=== PATIENT | female | born 1995 | race Two or more races ===

== ENCOUNTER 2024-04-07 11:07 | Inpatient (IN) | payer MEDICAID, OTHER ==
[~2024-04-07] VITALS: Ht 165.1 cm; Wt 90.3 kg
--- NOTE | 2024-04-07 11:12 | ED.PDOC ---
HPI (NEURO) HPI Comments 29 year old female [place] presents to the ED with chief complaint of seizure. 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 EMS relays patient was witnessed to be having a 3 minute seizure by staff. Patient states she had urinary incontinence along with currently experiencing tongue pain, dizziness, nausea, and weakness. EMS notes that they provided the patient 4mg of Zofran. Patient reports that she currently takes lamotrigine daily and her last seizure was 2 weeks ago. Patient denies any headache, chest pain, SOB, vomiting, diarrhea, abdominal pain, oral trauma, or fever. 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, Medications, Allergies Information Source: Patient, Emergency Med Personnel Mode of Arrival: EMS Severity: Moderate Headache Severity: None Timing: Hours Duration: Minutes Prehospital treatment: None Seizure Quality: Tonic-clonic, Single Episodes Seizure Location: Generalized Onset: At rest Circumstances: Spontaneous Symptoms: Numbness, Other (Tingling) Before: Aura During: LOC After: Normal Mentation History of: Seizure Disorder Modifying factors: Nothing Associated Signs and Symptoms: Nausea Past Medical History PAST MEDICAL HISTORY: Seizures, Thyroid Surgical History: Denies all surgeries 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 History: Other (PCOS) Family History Family History: Reviewed,noncontributory to illness Social History Smoker: Non-Smoker Alcohol: Denies ETOH Use Drugs: Denies Drug Use Lives In: Home Constitutional: reports: weakness; denies: chills, diaphoresis, fatigue, fever, malaise, sweats, others EENTM: reports: others (Tongue pain); denies: blurred vision, double vision, ear bleeding, ear discharge, ear drainage, ear pain, ear ringing, eye pain, eye redness, hearing loss, mouth pain, mouth swelling, nasal discharge, nose bleeding, nose congestion, nose pain, photophobia, tearing, throat pain, throat swelling, voice changes Respiratory: denies: cough, hemoptysis, orthopnea, SOB at rest, shortness of breath, SOB with excertion, stridor, wheezing, others Cardiovascular: denies: chest pain, dizzy spells, diaphoresis, Dyspnea on exertion, edema, irregular heart beat, left arm pain, lightheadedness, palpitations, PND, syncope, others Gastrointestinal: reports: nausea; denies: abdomen distended, abdominal pain, blood streaked bowels, constipated, diarrhea, dysphagia, difficulty swallowing, hematemesis, melena, poor appetite, poor fluid intake, rectal bleeding, rectal pain, vomiting, others Genitourinary: denies: abnormal vagina bleeding, burning, dyspareunia, dysuria, flank pain, frequency, hematuria, incontinence, pain, , vagina discharge, urgency, others Neurological: reports: dizziness, numbness, seizure, tingling; denies: fainting, headache, left sided numbness, left sided weakness, paresthesia, pre- existing deficit, right sided numbness, right sided weakness, speech problems, tremors, weakness, others Musculoskeletal: denies: back pain, gout, joint pain, joint swelling, muscle pain, muscle stiffness, neck pain, others Integumetry: denies: bruises, change in color, change in hair/nails, dryness, laceration, lesions, lumps, rash, wounds, others Allergic/Immunocompromised: denies: Difficulty Healing, Frequent Infections, Hives, Itching, others Hematologic/Lymphatic: denies: anemia, blood clots, easy bleeding, easy bruising, swollen glands, others Endocrine: denies: excessive hunger, excessive sweating, excessive thirst, excessive urination, flushing, intolerance to cold, intolerance to heat, unexplained weight gain, unexplained weight loss, others Psychiatric: denies: anxiety, bipolar disorder, depression, hopeless, panic disorder, schizophrenia, sleepless, suicidal, others All Other Systems: Reviewed and Negative Physical Exam General Appearance: Moderate Distress, Normal HEENT: Normal ENT Inspection, PERRL/EOMI Neck: Full Range of Motion, Non-Tender, Normal, Normal Inspection Respiratory: Chest Non-Tender, Lungs Clear, No Accessory Muscle Use, No Respiratory Distress, Normal Breath Sounds Cardiovascular: No Edema, No JVD, No Murmur, No Gallop, Normal Peripheral Pulses, Regular Rate/Rhythm Breast Exam: Deferred Gastrointestinal: No Organomegaly, Non Tender, No Pulsatile Mass, Normal Bowel Sounds, Soft Genitalia: Deferred Pelvic: Deferred Rectal: Deferred Extremities: No calf tenderness, Normal capillary refill, Normal inspection, Normal range of motion, Non-tender, No pedal edema Musculoskeletal : Apperance: Normal Neurologic: Alert, personnel technician II-XII nml as Tested, No Motor Deficits, Normal Affect, Normal Mood, No Sensory Deficits Cerebellar Function: NOT DONE Reflexes: NOT DONE Skin: Dry, Normal Color, Warm Peripheral Pulses: 3+ Radial (R), 3+ Radial (L) Lymphatic: No Adenopathy Was a procedure done? Was a procedure done?: No Differential Diagnosis (SZ) Seizure: Psychogenic Seizure, Encephalopathy, Epilepsy-Break Through, Epilepsy- Status X-Ray, Labs, Meds, VS Vital Signs Date Time Temp Pulse Resp B/P (MAP) Pulse Ox O2 Delivery O2 Flow Rate FiO2 04/07/24 12:42 16 Room Air* 0 21 04/07/24 11:12 99.1 77 17 139/99 (112) 99 Lab Test 04/07/24 11:15 Range/Units White Blood Count 10.3 4.4-10.8 10^3/uL Red Blood Count 4.49 4.0-5.20 10^6/uL Hemoglobin 12.0 L 12.2-16.2 g/dL Hematocrit 36.4 36.0-46.0 % Mean Corpuscular Volume 80.9 80.0-100.0 fL Mean Corpuscular Hemoglobin 26.8 L 28.0-32.0 pg Mean Corpuscular Hemoglobin Concent 33.1 32.0-36.0 g/dL Red Cell Distribution Width 14.7 H 11.8-14.3 % Platelet Count 409 140-450 10^3/uL Mean Platelet Volume 6.9 6.9-10.8 fL Neutrophils (%) (Auto) 80.5 H 37.0-80.0 % Lymphocytes (%) (Auto) 13.0 10.0-50.0 % Monocytes (%) (Auto) 5.7 0.0-12.0 % Eosinophils (%) (Auto) 0.2 0.0-7.0 % Basophils (%) (Auto) 0.6 0.0-2.0 % Neutrophils # (Auto) 8.3 1.6-8.6 10 ^3/uL Lymphocytes # (Auto) 1.3 0.4-5.4 10 ^3/uL Monocytes # (Auto) 0.6 0-1.3 10 ^3/uL Eosinophils # (Auto) 0 0-0.8 10 ^3/uL Basophils # (Auto) 0.1 0-0.2 10 ^3/uL Nucleated Red Blood Cells 0.1 % Sodium Level 138 136-145 mmol/L Potassium Level 4.1 3.5-5.1 mmol/L Chloride Level 106 98-107 mmol/L Carbon Dioxide Level 24 20-31 mmol/L Anion Gap 8 5-15 Blood Urea Nitrogen 7 L 9-23 mg/dL Creatinine 0.80 0.550-1.02 mg/dL Glomerular Filtration Rate Calc 104 >90 mL/min BUN/Creatinine Ratio 8.8 L 10.0-20.0 Serum Glucose 89 74-106 mg/dL Calcium Level 9.9 8.7-10.4 mg/dL Current Medications Medications (Trade) Dose Ordered Sig/Emily Route Start Time Stop Time Status Last Admin Sodium Chloride 1,000 ml @ 1,000 mls/hr Q1H ONCE IV 04/07/24 11:15 04/07/24 12:14 DC 04/07/24 11:34 Ondansetron HCl (Zofran) 4 mg ONCE ONCE IV 04/07/24 11:30 04/07/24 11:31 DC 04/07/24 11:39 Levetiracetam 100 ml @ 400 mls/hr ONCE ONCE IV 04/07/24 12:00 04/07/24 13:02 DC 04/07/24 13:16 Lorazepam (Ativan Inj) 1 mg ONCE ONCE IM 04/07/24 13:30 04/07/24 13:31 DC 04/07/24 13:12 Patient alert. History of seizure. Vitals stable. Answering all questions. No oral injury. No sign of any injury. Moving all extremities. Neurology consultation. MRI. Explained to the patient. Continue cardiac monitoring. Time of 1ST Reevaluation: 12:09 Reevaluation 1ST: Unchanged Patient Education/Counseling: Diagnosis, Treatment Family Education/Counseling: No Family Present Additional Information I reviewed the following notes from patient's past medical encounters: None The following tests were ordered, and results were reviewed by me: CT Head, CBC, BMP, UA Additional Information was gathered from interviewing the following independent historians: EMS I reviewed and agreed with the following test results read by other providers: CT Head I discussed treatment and results with medical personnel. Departure 1 Departure Time of Disposition: 11:31 Impression: Primary Impression: Seizure disorder Disposition: ADMITTED INPATIENT Admit to: Med Surg Condition: Guarded Critical Care Note Critical Care Time?: No Stability Stability form required: No Heart Score Heart Score: Heart Score Response (Comments) Value History N/A 0 EKG N/A 0 Age N/A 0 Risk Factors N/A 0 Troponin N/A 0 Total 0 I personally scribed for RODERICK HARRINGTON MD ([email or web address]) on 04/07/24 at 11:12. Electronically submitted by Mau White ([email or web address]). RODERICK HARRINGTON MD Apr 07, 2024 11:12
[2024-04-07] MEDS: SODIUM CHLORIDE 0.9% 1,000 ML IV ONE (11:34)
[2024-04-07] MEDS: ONDANSETRON HCL 4 MG/2 ML VIAL IV ONE (11:39)
[2024-04-07 11:50] LABS: Basophils # (auto) 0.1 10 ^3/uL (0-0.2); Basophils % (auto) 0.6 % (0.0-2.0); Eosinophils # (auto) 0 10 ^3/uL (0-0.8); Eosinophils % (auto) 0.2 % (0.0-7.0); Hematocrit 36.4 % (36.0-46.0); Lymphocytes # (auto) 1.3 10 ^3/uL (0.4-5.4); Mean Corpuscular Hemoglobin 26.8 pg (28.0-32.0); Mean Corpuscular Hgb Conc. 33.1 g/dL (32.0-36.0); Mean Corpuscular Volume 80.9 fL (80.0-100.0); Monocytes # (auto) 0.6 10 ^3/uL (0-1.3); Monocytes % (auto) 5.7 % (0.0-12.0); Neutrophils # (auto) 8.3 10 ^3/uL (1.6-8.6); Neutrophils % (auto) 80.5 % (37.0-80.0); Nucleated Red Blood Cells % 0.1 %; Platelet Count (auto) 409 10^3/uL (140-450); Red Blood Cells 4.49 10^6/uL (4.0-5.20); Red Cell Distribution Width 14.7 % (11.8-14.3); White Blood Cell 10.3 10^3/uL (4.4-10.8)
[2024-04-07 11:59] LABS: Anion Gap 8 (5-15); Calcium 9.9 mg/dL (8.7-10.4); Carbon Dioxide 24 mmol/L (20-31); Chloride 106 mmol/L (98-107); Potassium 4.1 mmol/L (3.5-5.1); Sodium 138 mmol/L (136-145)
[2024-04-07 12:05] LABS: BUN/Creatinine Ratio 8.8 (10.0-20.0); Glucose 89 mg/dL (74-106)
[2024-04-07 12:09] LABS: Blood Urea Nitrogen 7 mg/dL (9-23)
[2024-04-07 12:42] VITALS: RESP 16
[2024-04-07] MEDS ORDERED: LORazepam 2MG/ML-1ML VIAL ONE (13:04)
[2024-04-07] MEDS: LORazepam 2MG/ML-1ML VIAL IM ONE (13:12)
[2024-04-07] MEDS: levETIRAcetam 500 mg/100ml 100 ML IV ONE (13:16)
--- NOTE | 2024-04-07 15:58 | DVHHP2 ---
History of Present Illness Reason for Visit: Seizures History of Present Illness Valarie Elizabeth is a 29-year-old female with past medical history of thyroid and seizures who presents to the ED with seizure and urinary incontinence. 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 She states that school personnel called EMS. She is unsure if she fell and hit her head. Patient reports that she takes phenobarbital with control and not Keppra because there is a reaction with Keppra on her control. She states however she did not take her control pills today. Patient denies chest pain, shortness of breath, abdominal pain, vomiting, diarrhea, fevers, chills, recent sick contacts, recent illnesses, and ingestion of spoiled food. Patient reports that she is dehydrated. [employer]OC[employer]ATE [employer]: Seizure Endocrine: Hypothyroidism Past Surgical History: None Family History: None Smoke: No ALCOHOL: none Drugs: None Lives: Roommate Domestic Violence: Neg Review of Systems Constitutional: Yes: Weakness, Other (Dizziness); No: Fever, Chills, Sweats, Malaise Eyes: No: Pain, Vision change, Conjunctivae inflammation, Eyelid inflammation, Other, Redness ENT: No: Ear pain, Ear discharge, Nose pain, Nose discharge, Nose congestion, Mouth pain, Mouth swelling, Throat pain, Throat swelling, Other Respiratory: No: Cough, Dry, Shortness of breath, SOB with excertion, Wheezing, Hemoptysis, Pleuritic Pain, Sputum, Wheezing, Other Cardiovascular: No: Chest Pain, Palpitations, Orthopnea, Paroxysmal Noc. Dyspnea, Edema, Lt Headedness, Other Gastrointestinal: Nausea; No: Vomiting, Abdominal Pain, Diarrhea, Constipation, Melena, Hematochezia, Other Genitourinary: No Dysuria, No Frequency; Incontinence; No Hematuria, No Retention, No Other Musculoskeletal: other (Numbness and tingling of fingers) Skin: No: Rash, Lesions, Jaundice, Bruising, Other Neurological: Change in speech (Slow response), Seizures; No: Weakness, Numbness, Incoordination, Confusion, Other Allergies: Coded Allergies: Phenobarbital (Verified Allergy, Unknown, 04/07/24) Exam Vital Signs Vital Signs Date Time Temp Pulse Resp B/P (MAP) Pulse Ox O2 Delivery O2 Flow Rate FiO2 04/07/24 12:42 16 Room Air* 0 21 04/07/24 11:12 99.1 77 139/99 (112) 99 General Appearance: Alert, Oriented X3, Cooperative, No acute distress HEENT: Atraumatic, PERRLA, EOMI, Mucous membr. moist/pink Respiratory: Clear to auscultation, Normal air movement Cardiovascular: Regular rate, Normal S1, Normal S2, No murmurs Abdominal: Normal bowel sounds, Soft, No tenderness, No hepatospenomegaly, No masses Extremities: No clubbing, No cyanosis, No edema, Normal pulses, No tenderness/swelling Skin: No rashes, No breakdown, No significant lesion Neuro: Sensation intact Psych/Mental Status: Mental status NL, Mood NL Labs/Xrays Labs Test 04/07/24 11:15 Range/Units White Blood Count 10.3 4.4-10.8 10^3/uL Red Blood Count 4.49 4.0-5.20 10^6/uL Hemoglobin 12.0 L 12.2-16.2 g/dL Hematocrit 36.4 36.0-46.0 % Mean Corpuscular Volume 80.9 80.0-100.0 fL Mean Corpuscular Hemoglobin 26.8 L 28.0-32.0 pg Mean Corpuscular Hemoglobin Concent 33.1 32.0-36.0 g/dL Red Cell Distribution Width 14.7 H 11.8-14.3 % Platelet Count 409 140-450 10^3/uL Mean Platelet Volume 6.9 6.9-10.8 fL Neutrophils (%) (Auto) 80.5 H 37.0-80.0 % Lymphocytes (%) (Auto) 13.0 10.0-50.0 % Monocytes (%) (Auto) 5.7 0.0-12.0 % Eosinophils (%) (Auto) 0.2 0.0-7.0 % Basophils (%) (Auto) 0.6 0.0-2.0 % Neutrophils # (Auto) 8.3 1.6-8.6 10 ^3/uL Lymphocytes # (Auto) 1.3 0.4-5.4 10 ^3/uL Monocytes # (Auto) 0.6 0-1.3 10 ^3/uL Eosinophils # (Auto) 0 0-0.8 10 ^3/uL Basophils # (Auto) 0.1 0-0.2 10 ^3/uL Nucleated Red Blood Cells 0.1 % Sodium Level 138 136-145 mmol/L Potassium Level 4.1 3.5-5.1 mmol/L Chloride Level 106 98-107 mmol/L Carbon Dioxide Level 24 20-31 mmol/L Anion Gap 8 5-15 Blood Urea Nitrogen 7 L 9-23 mg/dL Creatinine 0.80 0.550-1.02 mg/dL Glomerular Filtration Rate Calc 104 >90 mL/min BUN/Creatinine Ratio 8.8 L 10.0-20.0 Serum Glucose 89 74-106 mg/dL Calcium Level 9.9 8.7-10.4 mg/dL CT HEAD WITHOUT CONTRAST INDICATION: seizures EXAM DATE: 04/07/2024 03:51 PM COMPARISON: None RADIATION DOSE: CTDIvol: 59 mGy, DLP: 1164 mGy*cm PROCEDURE: CT scans of the head were obtained from the vertex to the skull base. Sagittal and coronal reconstructions were provided. All CT scans at this medical facility are performed using dose modulation techniques as appropriate to a performed exam including the following: Automated exposure control was utilized; adjustment of the MA and/or KV according to patient size; and use of iterative reconstruction technique. FINDINGS: The brainshows normal morphology and posey-white matter differentiation, without intracranial hemorrhage, extra-axial fluid collection, mass effect or acute large vessel infarct. The ventricles are normal in size. The basal cisterns are patent. The skull and visible facial bones are intact. The paranasal sinuses, mastoid air cells and middle ear cavities are well-aerate d. The soft tissues of the scalp are unremarkable. IMPRESSION: No acute intracranial abnormality. Assessment/Plan Assessment/Plan Assessment/Plan: Seizures Antiemetics Ativan given in ED IV Keppra Normal saline 1 L given ED UA CT head Seizure precautions A.m. labs Labs UDS History of Hypothyroidism Follow up with PCP outpatient FEN/PPX Diet IV fluids PUD ppx - not indicated no history of GERD or GI bleed DVT ppx -not indicated patient ambulating Discussed plan of care with patient, patient's spouse, and nurse Admit to tele Home medications reconciled Plan discussed with: Patient My Orders Orders - BING ZULUAGA Procedure Category Date Status Time * Neurology Consult CONS 04/07/24 Transmitted 15:37 Levetiracetam Ivpb PHA 04/07/24 Transmitted Keppra 22:[address] 04/07/24 Transmitted 15:37 Seizure Precautions ED NURSING 04/07/24 Transmitted Admit ADMIT 04/07/24 Transmitted 15:37 Allergies CODY 04/07/24 Transmitted 15:37 Code Status CODE 04/07/24 Transmitted 15:37 0.9% Ns 1000 Ml PHA 04/07/24 Transmitted 15:45 Ondansetron Hcl PHA 04/07/24 Verified (Zofran) 15:45 Complete Blood Count LAB 04/08/24 Verified 04:00 Comprehensive LAB 04/08/24 Verified Metabolic Panel 04:00 Cardiac DIET 04/07/24 Verified Diet-2gna,Lofat,Lochol Dinner Acetaminophen Tablet PHA 04/07/24 Verified (Tylenol Tablet) 15:45 Date of Service: Apr 07, 2024 Billing Provider: BING ZULUAGA Common Visit Codes: [id number] INP/OBS CARE (HIGH) BING ZULUAGA Apr 07, 2024 15:58
--- NOTE | 2024-04-07 16:08 | DVH ---
CT HEAD WITHOUT CONTRAST INDICATION: seizures EXAM DATE: 04/07/2024 03:51 PM COMPARISON: None RADIATION DOSE: CTDIvol: 59 mGy, DLP: 1164 mGy*cm PROCEDURE: CT scans of the head were obtained from the vertex to the skull base. Sagittal and coronal reconstructions were provided. All CT scans at this medical facility are performed using dose modulation techniques as appropriate t o a performed exam including the following: Automated exposure control was utilized; adjustment of th e MA and/or KV according to patient size; and use of iterative reconstruction technique. FINDINGS: The brainshows normal morphology and posey-white matter differentiation, without intracran ial hemorrhage, extra-axial fluid collection, mass effect or acute large vessel infarct. The ventricl es are normal in size. The basal cisterns are patent. The skull and visible facial bones are intact. The paranasal sinuses, mastoid air cells and middle ear cavities are well-aerated. The soft tissues o f the scalp are unremarkable. IMPRESSION: No acute intracranial abnormality.
[2024-04-07] MEDS: SODIUM CHLORIDE 0.9% 1,000 ML IV SCH (17:25)
[2024-04-07 20:42] VITALS: PULSE 90; RESP 16; O2SAT 98
[2024-04-07 20:50] LABS: Urine Bacteria FEW /hpf (None Seen); Urine Blood Negative /uL (Negative); Urine Clarity Clear (Clear); Urine Color Light-Yellow (Yellow); Urine Protein, UAD Negative (Negative); Urine Specific Gravity 1.013 (1.001-1.035); Urine Squamous Epithelial Cell FEW /hpf (<5); Urine Urobilinogen Normal (Negative); Urine WBC < 1 /HPF (0-5)
[2024-04-07 21:01] LABS: Cannabinoid Screen, Urine Neg (NEGATIVE)
[2024-04-07 21:07] LABS: Amphetamine Screen, Urine Neg (NEGATIVE); Barbiturate Scree,Urine Neg (NEGATIVE); Benzodiazephine Screen, Urine Neg (NEGATIVE); Cocaine Screen, Urine Neg (NEGATIVE); Opiate Scree,Urine Neg (NEGATIVE); Phencyclidine Screen, Urine Neg (NEGATIVE)
[2024-04-07] MEDS: ACETAMINOPHEN 325 MG TAB PO PRN (21:16)
[2024-04-07] MEDS: levETIRAcetam 500 mg/100ml 100 ML IV SCH (21:17)
[2024-04-08 07:44] LABS: Eosinophils # (auto) 0 10 ^3/uL (0-0.8); Eosinophils % (auto) 0.3 % (0.0-7.0); Hemoglobin 11.6 g/dL (12.2-16.2); Monocytes # (auto) 0.6 10 ^3/uL (0-1.3)
[2024-04-08 07:48] LABS: Basophils # (auto) 0 10 ^3/uL (0-0.2); Basophils % (auto) 0.5 % (0.0-2.0); Hematocrit 35.3 % (36.0-46.0); Lymphocytes # (auto) 1.8 10 ^3/uL (0.4-5.4); Lymphocytes % (auto) 19.3 % (10.0-50.0); Mean Corpuscular Hemoglobin 26.7 pg (28.0-32.0); Mean Corpuscular Hgb Conc. 32.9 g/dL (32.0-36.0); Mean Corpuscular Volume 81.2 fL (80.0-100.0); Monocytes % (auto) 6.6 % (0.0-12.0); Neutrophils # (auto) 6.8 10 ^3/uL (1.6-8.6); Neutrophils % (auto) 73.3 % (37.0-80.0); Platelet Count (auto) 398 10^3/uL (140-450); Red Blood Cells 4.34 10^6/uL (4.0-5.20); Red Cell Distribution Width 15.1 % (11.8-14.3); White Blood Cell 9.3 10^3/uL (4.4-10.8)
[2024-04-08 08:05] LABS: Alanine Aminotransferase 14 U/L (7-40); Albumin 4.7 g/dL (3.2-4.8); Alkaline Phosphatase 63 U/L (46-116); Anion Gap 7 (5-15); Aspartate Aminotransferase 14 U/L (13-40); BUN/Creatinine Ratio 8.4 (10.0-20.0); Bilirubin, Total 0.4 mg/dL (0.2-1.0); Calcium 9.4 mg/dL (8.7-10.4); Carbon Dioxide 26 mmol/L (20-31); Chloride 106 mmol/L (98-107); Glucose 87 mg/dL (74-106); Potassium 4.2 mmol/L (3.5-5.1); Sodium 139 mmol/L (136-145); Total Protein 7.4 g/dL (5.7-8.2)
[2024-04-08 08:08] LABS: Blood Urea Nitrogen 7 mg/dL (9-23)
[2024-04-08 08:50] VITALS: PULSE 73; RESP 17; O2SAT 97
[2024-04-08] MEDS: ONDANSETRON HCL 4 MG/2 ML VIAL IV PRN (09:04)
--- NOTE | 2024-04-08 09:37 | DVHINCON2 ---
Date of service: Apr 08, [address] Pagan Reason for Consultation Seizure History of Present Illness Ms. Elizabeth is a 29 years old left-handed female with a history of Jose Maria's disease, hypothyroidism, polycystic ovarian syndrome, seizure disorder, the patient was brought to the [facility] on 04/07/24 for seizure activity, at that time, she is alert and fully oriented, she was her mother prov ided the following history On 04/07/2024, at work, she has seizure with complete amnesia, she was said the he stood up, reasonable arm, and she had biting to her tongue in the urinary incontinence, she was no convulsion According to her mother, the patient was has had seizure disorder since age of 89 years old, during the seizure, she is walking, with arm raising the air, she has had biting and urinary incontinence during the seizure. She was febrile seizure once in the age of eight months, she was treated with a seizure medication for a few years She has seen many doctors, she sees a local neurologist now, she has vagal nerve stimulator, she is on lamotrigine 400 mg b.i.d but her seizure is not under good control recently, she has seizure about once weekly She only tried Keppra previously after the age of 10 Urinalysis, 04/07/2024: Unremarkable UDS, 04/07/2024: Negative WBC/HB/PLT/MCV, 04/08/24: 9.3/11.6/398/81.2 CMP, 04/08/2024: Unremarkable CT head, 04/07/2024: No acute intracranial abnormality. Past Medical History Jose Maria disease, hypothyroidism, polycystic ovarian syndrome. This reports that the patient does not ovulate, and she can not have children Past Surgical History Infection to the hand, vasovagal nerve stimulator Family History Diabetes, cancer Social History She is not a smoker, and she has no history of alcohol or substance abuse Allergies: Coded Allergies: Phenobarbital (Verified Allergy, Unknown, 04/07/24) Current Medications Current Medications Medications (Trade) Dose Ordered Sig/Emily Route PRN Reason Start Time Stop Time Status Last Admin Levetiracetam 100 ml @ 400 mls/hr BID IV 04/07/24 22:00 04/07/24 21:17 Sodium Chloride 1,000 ml @ 70 mls/hr [id number] IV 04/07/24 15:45 04/08/24 08:49 Ondansetron HCl (Zofran) 4 mg Q4HP PRN IV NAUSEA / VOMITING 04/07/24 15:45 04/08/24 09:04 Acetaminophen (Tylenol Tablet) 650 mg Q6HP PRN PO PAIN SCALE 1-3 OR TEMP>100.4 04/07/24 15:45 04/07/24 21:16 Review of Systems As above, the other systems are negative Vital Signs Vital Signs Date Time Temp Pulse Resp B/P (MAP) Pulse Ox O2 Delivery O2 Flow Rate FiO2 04/08/24 08:37 98.4 73 17 116/79 (91) 100 98.4 04/07/24 20:42 Room Air* 0 21 Physical Exam GENERAL EXAM: General: the patient is well developed and nourished. No acute distress. HEENT: Normocephalic, neck is supple, no carotid bruits. No mass. RESPIRATORY: Normal respiratory effort with symmetrical lung expansion. Lungs clear to auscultation. CARDIOVASCULAR: Regular rate and rhythm with no murmurs. S1, S2. ABDOMEN: Soft, nontender, normal bowel sound NEUROLOGICAL: MENTAL STATUS: Awake and alert. Oriented to person, place, time and general circumstances. Able to give personal history. The patient is aware of recent events SPEECH, LANGUAGE, HIGHER CORTICAL FUNCTION: no aphasia or dysathria. CRANIAL NERVES: #2: Intact visual li to confrontation. The optic discs were sharp. Retinal background was uniformly pink in appearance. There was no hemorrhages or exudates. #3,4,6: Pupils are equal, round and reactive. EOMs full and conjugate. Mild bilateral gaze evoked nystagmus. #5: Facial sensation intact in all three divisions bilaterally. Mandibular strength intact. #7: Facial muscles symmetrical and strength intact. #8: Hearing grossly normal to voice. #9,10: Uvula and soft palate rise in the midline. Swallow and voice are normal. #11: Trapezius and sternomastoid strength intact bilaterally. #12: Tongue midline. No fasciculations or atrophy. SENSATION: Sensation to touch and pinprick is normal. MOTOR: Normal tone in the upper and lower extremity. Normal muscle bulk. No fasciculations. No abnormal movements or posturing. Muscle strength of the major groups in the upper extremities is 5/5. Muscle strength of the major groups in the lower extremities is 5/5. REFLEXES: Deep tendon reflexes normal and symmetrical. No pathological reflexes. CEREBELLAR/COORDINATION: Finger to nose and heel to wood are normal bilaterally. GAIT/STATION: deferred. Labs/Diagnostic Data Labs Test 04/08/24 07:15 04/07/24 20:40 Range/Units White Blood Count 9.3 4.4-10.8 10^3/uL Red Blood Count 4.34 4.0-5.20 10^6/uL Hemoglobin 11.6 L 12.2-16.2 g/dL Hematocrit 35.3 L 36.0-46.0 % Mean Corpuscular Volume 81.2 80.0-100.0 fL Mean Corpuscular Hemoglobin 26.7 L 28.0-32.0 pg Mean Corpuscular Hemoglobin Concent 32.9 32.0-36.0 g/dL Red Cell Distribution Width 15.1 H 11.8-14.3 % Platelet Count 398 140-450 10^3/uL Mean Platelet Volume 6.6 L 6.9-10.8 fL Neutrophils (%) (Auto) 73.3 37.0-80.0 % Lymphocytes (%) (Auto) 19.3 10.0-50.0 % Monocytes (%) (Auto) 6.6 0.0-12.0 % Eosinophils (%) (Auto) 0.3 0.0-7.0 % Basophils (%) (Auto) 0.5 0.0-2.0 % Neutrophils # (Auto) 6.8 1.6-8.6 10 ^3/uL Lymphocytes # (Auto) 1.8 0.4-5.4 10 ^3/uL Monocytes # (Auto) 0.6 0-1.3 10 ^3/uL Eosinophils # (Auto) 0 0-0.8 10 ^3/uL Basophils # (Auto) 0 0-0.2 10 ^3/uL Nucleated Red Blood Cells 0.0 % Sodium Level 139 136-145 mmol/L Potassium Level 4.2 3.5-5.1 mmol/L Chloride Level 106 98-107 mmol/L Carbon Dioxide Level 26 20-31 mmol/L Anion Gap 7 5-15 Blood Urea Nitrogen 7 L 9-23 mg/dL Creatinine 0.83 0.550-1.02 mg/dL Glomerular Filtration Rate Calc 99 >90 mL/min BUN/Creatinine Ratio 8.4 L 10.0-20.0 Serum Glucose 87 74-106 mg/dL Calcium Level 9.4 8.7-10.4 mg/dL Total Bilirubin 0.4 0.2-1.0 mg/dL Aspartate Amino Transferase (AST) 14 13-40 U/L Alanine Aminotransferase (ALT) 14 7-40 U/L Alkaline Phosphatase 63 46-116 U/L Total Protein 7.4 5.7-8.2 g/dL Albumin 4.7 3.2-4.8 g/dL Urine Color Light-yellow Yellow Urine Clarity Clear Clear Urine pH 7.0 5.0-9.0 Urine Specific [place] 1.013 1.001-1.035 Urine Protein Negative Negative Urine Ketones Negative Negative Urine Blood Negative Negative /uL Urine Nitrite Negative Negative Urine Bilirubin Negative Negative Urine Urobilinogen Normal Negative mg/dL Urine Leukocyte Esterase Negative Negative /uL Urine RBC 1 0 - 4 /hpf Urine Microscopic WBC < 1 0-5 /HPF Urine Squamous Epithelial Cells Few <5 /hpf Urine Bacteria Few H None Seen /hpf Urine Glucose Normal Normal mg/dL Urine Opiates Screen Neg NEGATIVE Urine Fentanyl Screen Neg NEGATIVE Urine Barbiturates Screen Neg NEGATIVE Urine Phencyclidine Screen Neg NEGATIVE Urine Amphetamines Screen Neg NEGATIVE Urine Benzodiazepines Screen Neg NEGATIVE Urine Cocaine Screen Neg NEGATIVE Urine Cannabinoids Screen Neg NEGATIVE Assessment Seizure disorder Partial complex seizure ? Grand mal seizure Status post vagal nerve stimulator insertion Plan/Recommendation Monitoring Supportive treatment Telemetry Lamotrigine 400 mg b.i.d. Ativan for seizure breakthrough I recommend Xcopri and I will provide sample once the patient gets a room I have discussed with her and her mother Re: Comprehensive epilepsy Center evaluation More recommendation per clinical course Prognosis: Poor This medical document was created using an electronic medical record system with [employer] dictation system. Although this document has been carefully reviewed, there may still be some phonetic and typographical errors. These areas are purely typographical due to imperfections of the software programs, and do not reflect any compromise in the patient's medical care. Plan discussed with: Patient, Other SANDY ARANGO MD Apr 08, 2024 09:37
[2024-04-08] MEDS ORDERED: LORazepam 2MG/ML-1ML VIAL IV PRN (11:45)
--- NOTE | 2024-04-08 13:57 | DVHPN2 ---
Reviewed: Care Plan Changes from previous H/P or p: No Changes General: Per HPI Eyes: No Pain, No Vision change, No Conjunctivae inflammation, No Eyelid inflammation, No Other, No Redness ENT: No Ear pain, No Ear discharge, No Nose pain, No Nose discharge, No Nose congestion, No Mouth pain, No Mouth swelling, No Throat pain, No Throat swelling, No Other Cardiovascular: No Chest Pain, No Palpitations, No Orthopnea, No Paroxysmal Noc. Dyspnea, No Edema, No Lt Headedness, No Other Respiratory: No Cough, No Dry, No Shortness of breath, No SOB with excertion, No Wheezing, No Hemoptysis, No Pleuritic Pain, No Sputum, No Other Gastrointestinal: Nausea; No Vomiting, No Abdominal Pain, No Diarrhea, No Constipation, No Melena, No Hematochezia, No Other Genitourinary: No Dysuria, No Frequency; Incontinence; No Hematuria, No Retention, No Other Musculoskeletal: other (Numbness and tingling of fingers) Skin: No Rash, No Lesions, No Jaundice, No Bruising, No Other Objective Vitals Vital Signs Date Time Temp Pulse Resp B/P (MAP) Pulse Ox O2 Delivery O2 Flow Rate FiO2 04/08/24 08:37 98.4 73 17 116/79 (91) 100 98.4 04/07/24 20:42 Room Air* 0 21 Intake/Output Intake and Output 04/08/24 07:00 Intake Total 1500 ml Balance 1500 ml Intake IV Total 1500 ml Medications Current Medications Medications Dose Ordered Sig/Emily Route Start Time Stop Time Status Last Admin Dose Admin Sodium Chloride 1,000 ml @ 70 mls/hr [id number] IV 04/07/24 15:45 04/08/24 08:49 70 MLS/HR Ondansetron HCl 4 mg Q4HP PRN IV 04/07/24 15:45 04/08/24 09:04 4 MG Acetaminophen 650 mg Q6HP PRN PO 04/07/24 15:45 04/07/24 21:16 650 MG Lorazepam 1 mg Q5MINP PRN IV 04/08/24 11:45 Lamotrigine 400 mg Q12HR PO 04/08/24 22:00 UNV Laboratory Results Laboratory Tests 04/08/24 07:15 Chemistry Test 04/08/24 07:15 Albumin 4.7 g/dL (3.2-4.8) Calcium Level 9.4 mg/dL (8.7-10.4) Total Protein 7.4 g/dL (5.7-8.2) LFT Test 04/08/24 07:15 Alanine Aminotransferase (ALT) 14 U/L (7-40) Alkaline Phosphatase 63 U/L (46-116) Aspartate Amino Transferase (AST) 14 U/L (13-40) Total Bilirubin 0.4 mg/dL (0.2-1.0) Urinalysis Test 04/07/24 20:40 Urine Color Light-yellow (Yellow) Urine Clarity Clear (Clear) Urine pH 7.0 (5.0-9.0) Urine Specific [place] 1.013 (1.001-1.035) Urine Protein Negative (Negative) Urine Ketones Negative (Negative) Urine Blood Negative /uL (Negative) Urine Nitrite Negative (Negative) Urine Bilirubin Negative (Negative) Urine Urobilinogen Normal mg/dL (Negative) Urine Leukocyte Esterase Negative /uL (Negative) Urine RBC 1 /hpf (0 - 4) Urine Microscopic WBC < 1 /HPF (0-5) Urine Squamous Epithelial Cells Few /hpf (<5) Urine Bacteria Few /hpf (None Seen) H Urine Glucose Normal mg/dL (Normal) Labs and/or images reviewed: Labs reviewed by me, Image(s) reviewed by me Assessment/Plan Assessment/Plan Glenn Valarie Twila is a 29-year-old female with past medical history of thyroid and seizures who presents to the ED with seizure and urinary incontinence. 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 She states that school personnel called EMS. She is unsure if she fell and hit her head. Patient reports that she takes phenobarbital with control and not Keppra because there is a reaction with Keppra on her control. She states however she did not take her control pills today. Patient denies chest pain, shortness of breath, abdominal pain, vomiting, diarrhea, fevers, chills, recent sick contacts, recent illnesses, and ingestion of spoiled food. Patient reports that she is dehydrated. Seizures History of Hypothyroidism Follow up with PCP outpatient Plan discussed with: Patient Date of Service: Apr 08, 2024 Billing Provider: ZAY WHITESIDE DO Common Visit Codes: [id number] INP/OBS CARE(HIGH) ZAY WHITESIDE DO Apr 08, 2024 13:57
[2024-04-08 19:06] VITALS: BP 134/83; PULSE 72; RESP 17; TEMP 98.2; O2SAT 98
[2024-04-08] MEDS ORDERED: LAMO100T44 PO (19:42)
[2024-04-08] MEDS ORDERED: [UNRECOGNIZED DRUG - CODE] PO (19:42)
[2024-04-08] MEDS ORDERED: NORGTAB PO (19:42)
[2024-04-08] MEDS ORDERED: LAMO200T34 PO (19:42)
[2024-04-08 19:43] VITALS: PULSE 72; RESP 16; O2SAT 98
[2024-04-08 20:30] VITALS: PULSE 72; RESP 16; O2SAT 98
[2024-04-08 21:00] VITALS: BP 127/86; PULSE 71; RESP 18; TEMP 98.3; O2SAT 98
[2024-04-08] MEDS: lamoTRIgine 100 MG TAB PO SCH (21:56)
[2024-04-09 01:00] VITALS: BP 120/60; PULSE 60; RESP 17; TEMP 97.6; O2SAT 95
[2024-04-09 05:00] VITALS: BP 113/65; PULSE 69; RESP 18; TEMP 97.7; O2SAT 98
[2024-04-09 08:00] VITALS: PULSE 72; RESP 16; O2SAT 98
[2024-04-09 09:00] VITALS: BP 136/87; PULSE 78; RESP 18; TEMP 98.1; O2SAT 98
[2024-04-09 13:00] VITALS: BP 126/72; PULSE 76; RESP 20; TEMP 98.6; O2SAT 99
[2024-04-09] MEDS ORDERED: LAM100T PO (13:14)
== END 2024-04-09 15:20 | disposition home or self-care (01) | DRG 53 ==
LOC: EDBD 11:07 → ER 11:07 → OVERFLOW 15:37 → CENTRAL 04-08 19:06
PROVIDERS: ADMIT Internal Medicine; ATTEND Internal Medicine
DX: G40.209 Localization-related (focal) (partial) symptomatic epilepsy and epileptic syndromes with complex partial seizures, not intractable, without status epilepticus (principal); E03.9 Hypothyroidism, unspecified; E86.0 Dehydration; R32 Unspecified urinary incontinence; E28.2 Polycystic ovarian syndrome; Z83.3 Family history of diabetes mellitus; Z88.8 Allergy status to other drugs, medicaments and biological substances
CPT/HCPCS: 36415; 70450; 80048; 80053; 80307; 81001; 85025; 87081; 96361; 96372; 96374; 96375; G0378; J2405

== ENCOUNTER 2024-10-20 12:11 | Inpatient (IN) | payer MEDICAID, OTHER ==
[~2024-10-20] VITALS: Ht 170.2 cm; Wt 85.6 kg
[~2024-10-20 12:11] MED LIST: LAM100T PO; LAMO100T44 PO; LAMO200T34 PO; NORGTAB PO
--- NOTE | 2024-10-20 12:29 | ED.PDOC ---
History of Present Illness HPI Comments 29-year-old female who comes in with chief complaint of two seizures today. The patient was at work and then suddenly had a seizure lasting approximately 30-45 seconds. The patient's seizure is an absence seizure. Following this, the patient then had another seizure lasting 30-45 seconds which once again was an absence seizure. 911 was called and the patient was transported to our facility. The patient is currently on Lamictal for her seizures and her dosages have not been changed. The patient is having a headache as well. EN route, the patient's Accu-Chek was 79. An IV Hep-Lock was established and the patient was also given Zofran 4 mg IV push for the nausea that she was experiencing. No medications were given at that time. The patient states that her last seizure was yesterday and she had two similar seizures last night. Chief Complaint: Seizure Time Seen by MD: 12:18 Reviewed Notes: Nurses Notes, Pipefitter Helper Notes, Medications, Allergies (Allergies listed above) Allergies: Coded Allergies: Phenobarbital (Verified Allergy, Unknown, 10/20/24) Information Source: Patient, Emergency Med Personnel Mode of Arrival: EMS Severity: Moderate Timing: Hours Duration: Intermittent Prehospital treatment: Accucheck (79 Accu-Chek), Supervisor Seaming, IVF, Other (Zofran 4 mg IV push) Associated signs and symptoms Associated headache Past Medical History PAST MEDICAL HISTORY: Seizures Past Medical History (Other): Jose Maria's, PCOS Surgical History (Other): Right hand surgery secondary to infection SOLUTION DEVELOPER History: No Pertinent SOLUTION DEVELOPER History Family History Family History: Family hx of Cancer Social History Smoker: Non-Smoker Alcohol: Denies ETOH Use Drugs: Denies Drug Use Lives In: Home Constitutional: denies: chills, diaphoresis, fatigue, fever, malaise, sweats, weakness, others EENTM: denies: blurred vision, double vision, ear bleeding, ear discharge, ear drainage, ear pain, ear ringing, eye pain, eye redness, hearing loss, mouth pain, mouth swelling, nasal discharge, nose bleeding, nose congestion, nose pain, photophobia, tearing, throat pain, throat swelling, voice changes, others Respiratory: denies: cough, hemoptysis, orthopnea, SOB at rest, shortness of breath, SOB with excertion, stridor, wheezing, others Cardiovascular: denies: chest pain, dizzy spells, diaphoresis, Dyspnea on exertion, edema, irregular heart beat, left arm pain, lightheadedness, palpitations, PND, syncope, others Gastrointestinal: reports: nausea; denies: abdomen distended, abdominal pain, blood streaked bowels, constipated, diarrhea, dysphagia, difficulty swallowing, hematemesis, melena, poor appetite, poor fluid intake, rectal bleeding, rectal pain, vomiting, others Genitourinary: denies: abnormal vagina bleeding, burning, dyspareunia, dysuria, flank pain, frequency, hematuria, incontinence, pain, , vagina discharge, urgency, others Neurological: reports: seizure; denies: dizziness, fainting, headache, left sided numbness, left sided weakness, numbness, paresthesia, pre-existing deficit, right sided numbness, right sided weakness, speech problems, tingling, tremors, weakness, others Musculoskeletal: denies: back pain, gout, joint pain, joint swelling, muscle pain, muscle stiffness, neck pain, others Integumetry: denies: bruises, change in color, change in hair/nails, dryness, laceration, lesions, lumps, rash, wounds, others Allergic/Immunocompromised: denies: Difficulty Healing, Frequent Infections, Hives, Itching, others Hematologic/Lymphatic: denies: anemia, blood clots, easy bleeding, easy bruising, swollen glands, others Endocrine: denies: excessive hunger, excessive sweating, excessive thirst, excessive urination, flushing, intolerance to cold, intolerance to heat, unexplained weight gain, unexplained weight loss, others Psychiatric: denies: anxiety, bipolar disorder, depression, hopeless, panic disorder, schizophrenia, sleepless, suicidal, others Physical Exam General Appearance: Moderate Distress HEENT: Normal ENT Inspection, Pharynx Normal, TMs Normal Neck: Full Range of Motion, Non-Tender, Normal, Normal Inspection Respiratory: Chest Non-Tender, Lungs Clear, No Accessory Muscle Use, No Respiratory Distress, Normal Breath Sounds Cardiovascular: No Edema, No JVD, No Murmur, No Gallop, Normal Peripheral Pulses, Regular Rate/Rhythm Breast Exam: Deferred Gastrointestinal: No Organomegaly, Non Tender, No Pulsatile Mass, Normal Bowel Sounds, Soft Genitalia: Deferred Pelvic: Deferred Rectal: Deferred Extremities: No calf tenderness, Normal capillary refill, Normal inspection, Normal range of motion, Non-tender, No pedal edema Musculoskeletal : Apperance: Normal Neurologic: tire debeader II-XII nml as Tested, Motor Weakness, Normal Mood, No Sensory D eficits, Other (The patient has slowed speech and seems to be somewhat postictal) Cerebellar Function: Unable to Test Reflexes: Normal Skin: Dry, Normal Color, Warm Lymphatic: No Adenopathy Was a procedure done? Was a procedure done?: No EKG EKG : Pulse Rate (adult): 86 [place]: Normal Cardiac Rhythm: NSR Block: None ST: Nonsp Differential Dx Considerations may include: Breakthrough seizure, electrolyte imbalance X-Ray, Labs, Meds, VS Vital Signs Date Time Temp Pulse Resp B/P (MAP) Pulse Ox O2 Delivery O2 Flow Rate FiO2 10/20/24 12:45 98.8 84 18 123/86 (98) 97 98.8 10/20/24 12:29 86 10/20/24 12:17 98.8 84 18 123/86 97 98.8 10/20/24 12:14 86 Lab Test 10/20/24 13:59 10/20/24 12:55 Range/Units Urine Color Colorless Yellow Urine Clarity Clear Clear Urine pH 6.0 5.0-9.0 Urine Specific Given 1.004 1.001-1.035 Urine Protein Negative Negative Urine Ketones Negative Negative Urine Blood Negative Negative /uL Urine Nitrite Negative Negative Urine Bilirubin Negative Negative Urine Urobilinogen Normal Negative mg/dL Urine Leukocyte Esterase Negative Negative /uL Urine RBC 1 0 - 4 /hpf Urine Microscopic WBC 2 0-5 /HPF Urine Squamous Epithelial Cells Few <5 /hpf Urine Bacteria Many H None Seen /hpf Urine Glucose Normal Normal mg/dL White Blood Count 10.3 4.4-10.8 10^3/uL Red Blood Count 5.19 4.0-5.20 10^6/uL Hemoglobin 14.2 12.2-16.2 g/dL Hematocrit 42.5 36.0-46.0 % Mean Corpuscular Volume 81.9 80.0-100.0 fL Mean Corpuscular Hemoglobin 27.3 L 28.0-32.0 pg Mean Corpuscular Hemoglobin Concent 33.3 32.0-36.0 g/dL Red Cell Distribution Width 14.6 H 11.8-14.3 % Platelet Count 366 140-450 10^3/uL Mean Platelet Volume 6.8 L 6.9-10.8 fL Neutrophils (%) (Auto) 78.5 37.0-80.0 % Lymphocytes (%) (Auto) 15.1 10.0-50.0 % Monocytes (%) (Auto) 5.6 0.0-12.0 % Eosinophils (%) (Auto) 0.1 0.0-7.0 % Basophils (%) (Auto) 0.7 0.0-2.0 % Neutrophils # (Auto) 8.1 1.6-8.6 10 ^3/uL Lymphocytes # (Auto) 1.6 0.4-5.4 10 ^3/uL Monocytes # (Auto) 0.6 0-1.3 10 ^3/uL Eosinophils # (Auto) 0 0-0.8 10 ^3/uL Basophils # (Auto) 0.1 0-0.2 10 ^3/uL Nucleated Red Blood Cells 0.1 % Sodium Level 141 136-145 mmol/L Potassium Level 3.5 3.5-5.1 mmol/L Chloride Level 107 98-107 mmol/L Carbon Dioxide Level 24 20-31 mmol/L Anion Gap 10 5-15 Blood Urea Nitrogen 7 L 9-23 mg/dL Creatinine 0.93 0.550-1.02 mg/dL Glomerular Filtration Rate Calc 86 >90 mL/min BUN/Creatinine Ratio 7.5 L 10.0-20.0 Serum Glucose 90 74-106 mg/dL Calcium Level 9.9 8.7-10.4 mg/dL Current Medications Medications (Trade) Dose Ordered Sig/Emily Route Start Time Stop Time Status Last Admin Acetaminophen/ Hydrocodone Bitart ([place] 5/325MG Tab) 1 tab ONCE ONCE PO 10/20/24 13:45 10/20/24 13:46 DC 10/20/24 13:47 IV Hep-Lock was established Seizure precautions were placed on this patient Cat scan of the head negative The patient was given [place] for the headache. The patient's CBC is within normal limits The chemistry panel is within normal limits The urine test is negative At this time, we continue to evaluate the patient but because of the increasing frequency of seizures we are going to admit the patient to the hospitalist A neurology consult will be obtained. Images Reviewed?: Images reviewed and evaluated by me Time of 1ST Reevaluation: 12:25 Reevaluation 1ST: Unchanged Patient Education/Counseling: Diagnosis, Treatment, Prognosis Family Education/Counseling: No Family Present SEPSIS Sepsis Screen Date sepsis recognized/suspect: Oct 20, 2024 Time Sepsis recognized/suspect: 1210 Recent Procedure: No On Antibiotic Therapy: No Respiratory Rate >20: No Heart Rate >90: No Temp<36 C (96.8 F) or >38.3 C: No SBP <90 or MAP <65 mmHG: No New Acute Mental Status Change: No Is the patient on CPAP, BIPAP,: No Physician Orders Pulse Oximetry (10/20/24 12:21) Blood Pressure (10/20/24 12:21) Heplock Iv (10/20/24 12:21) Seizure Precautions (10/20/24 12:21) Supervisor Seaming (10/20/24 12:21) Electrocardigram (10/20/24 12:21) Head Without Contrast (10/20/24 12:21) Vital Signs Date Time Temp Pulse Resp B/P (MAP) Pulse Ox O2 Delivery O2 Flow Rate FiO2 10/20/24 12:45 98.8 84 18 123/86 (98) 97 98.8 10/20/24 12:29 86 10/20/24 12:17 98.8 84 18 123/86 97 98.8 10/20/24 12:14 86 Laboratory Tests Test 10/20/24 12:55 White Blood Count 10.3 10^3/uL (4.4-10.8) Medications Medications Dose Ordered Sig/Emily Route Start Time Stop Time Status Last Admin Dose Admin Acetaminophen/ Hydrocodone Bitart 1 tab ONCE ONCE PO 10/20/24 13:45 10/20/24 13:46 DC 10/20/24 13:47 Departure 1 Departure Time of Disposition: 12:25 Impression: Primary Impression: Breakthrough seizure Disposition: ADMITTED INPATIENT Admit to: Tele Condition: Fair Critical Care Note Critical Care Time?: Yes (45 min-critical care time only) Stability Stability form required: Yes Unstable for transfer: Telemetry monitoring (Telemetry monitoring required), ED Physician Assesment (Clinical assesment) Heart Score Heart Score: Heart Score Response (Comments) Value History N/A 0 EKG N/A 0 Age N/A 0 Risk Factors N/A 0 Troponin N/A 0 Total 0 TEJINDER,AMEE B MD Oct 20, 2024 12:29
[2024-10-20 13:08] LABS: Hematocrit 42.5 % (36.0-46.0); Hemoglobin 14.2 g/dL (12.2-16.2); Mean Corpuscular Hemoglobin 27.3 pg (28.0-32.0); Mean Corpuscular Volume 81.9 fL (80.0-100.0); Nucleated Red Blood Cells % 0.1 %
[2024-10-20 13:13] LABS: Potassium 3.5 mmol/L (3.5-5.1); Sodium 141 mmol/L (136-145)
[2024-10-20 13:14] LABS: Anion Gap 10 (5-15); Carbon Dioxide 24 mmol/L (20-31)
[2024-10-20 13:15] LABS: Calcium 9.9 mg/dL (8.7-10.4)
[2024-10-20 13:17] LABS: Chloride 107 mmol/L (98-107)
[2024-10-20 13:19] LABS: BUN/Creatinine Ratio 7.5 (10.0-20.0); Glucose 90 mg/dL (74-106)
[2024-10-20 13:22] LABS: Blood Urea Nitrogen 7 mg/dL (9-23)
[2024-10-20] MEDS: HYDROcodone-ACET 5/325MG TAB PO ONE (13:47)
--- NOTE | 2024-10-20 13:58 | DVH ---
CLINICAL HISTORY: seizure TECHNIQUE: Helical imaging carried out from skull base to vertex without intravenous contrast. This e xam was performed according to our departmental dose optimization program. Up-to-date CT equipment an d radiation dose reduction techniques are utilized as appropriate. CTDIVol: 56.79 mGy DLP: 1119.08 mGy-cm WID: COMPARISON: None FINDINGS: The ventricles and subarachnoid spaces are normal in size and configuration. There is no midline mathieu ft or mass effect. The posey white matter interfaces are maintained. The basal cisterns are patent. Th ere is no evidence of acute intracranial hemorrhage or extra-axial fluid collection. The mastoid air cells and visualized paranasal sinuses are well-aerated. IMPRESSION: No acute intracranial abnormality.
[2024-10-20 14:27] LABS: Urine Protein, UAD Negative (Negative)
[2024-10-20] MEDS ORDERED: NITROGLYCERIN 0.4 MG SL TAB SL PRN (17:45)
[2024-10-20] MEDS ORDERED: MORPHINE SULFATE INJ 2 MG/ml SYRG IV PRN (17:45)
--- NOTE | 2024-10-20 17:55 | DVHHPRES ---
History of Present Illness Resident Creating Document: JASVIR ESTEBAN History of Present Illness Glenn Sheppard is a 29-year-old female with past medical history of seizures, Jose Maria's, PCOS, diverticulitis, presented to the ER with chief complaints of 2 seizures at work. She reported feeling nauseous before the seizure episode. The seizures were witnessed by coworkers who called the EMS. She reports start co-worker saw her staring blankly, her eyes were watering, speaking gibberish and lips turn blue. She had 2 seizure episodes at work, during the 2nd episode 1 of the coworkers called EMS. The patient complains of minimal confusion. Complains of headache. Last night, she also reported 2 seizure episodes in the sleep, woke up feeling being choked, pain in tongue after tongue biting. She also complained of sore throat after she woke up. She reports seizure onset was in childhood. She is compliant on her seizure medications. The only other medication she takes is oral contraceptive pills, she follows regularly with the neurologist Dr. Palmer. No history of insomnia, stress, infection, sick contacts. CONTACT LENS POLISHER: Seizure GI: Diverticulosis Renal/: Other (PCOS) Endocrine: Hypothyroidism Past Surgical History: None Smoke: No ALCOHOL: none Drugs: None Domestic Violence: Neg Review of Systems Constitutional: Yes: Other (Headache) Eyes: Other (Watering in eyes) Gastrointestinal: Nausea Neurological: Change in speech, Confusion, Seizures Allergies: Coded Allergies: Phenobarbital (Verified Allergy, Unknown, 04/07/24) Medications Current Medications Medications Dose Ordered Sig/Emily Route Start Time Stop Time Status Last Admin Dose Admin Sodium Chloride 1,000 ml @ 120 mls/hr Q8H20M IV 10/20/24 17:45 UNV Ondansetron HCl 4 mg Q4HP PRN IV 10/20/24 17:45 UNV Enoxaparin Sodium 40 mg DAILY SC 10/21/24 10:00 UNV Acetaminophen 650 mg Q6HP PRN PO 10/20/24 17:45 UNV Nitroglycerin 0.4 mg Q5MINP PRN SL 10/20/24 17:45 UNV Morphine Sulfate 2 mg Q30M PRN IV 10/20/24 17:45 UNV Levetiracetam 100 ml @ 400 mls/hr ONCE IV 10/20/24 17:45 UNV Exam Vital Signs Vital Signs Date Time Temp Pulse Resp B/P (MAP) Pulse Ox O2 Delivery O2 Flow Rate FiO2 10/20/24 14:45 67 18 115/72 (86) 98 10/20/24 12:45 Room Air* 0 21 10/20/24 12:45 98.8 98.8 General Appearance: Alert, Oriented X3, Cooperative, No acute distress HEENT: PERRLA Respiratory: Clear to auscultation, Normal air movement Cardiovascular: Regular rate, Normal S1, Normal S2, No murmurs Abdominal: Normal bowel sounds, Soft, No tenderness Extremities: No clubbing, No cyanosis, No edema, No tenderness/swelling Skin: No rashes, No breakdown, No significant lesion Neuro: Normal speech, Strength at 5/5 X4 ext, Normal tone, Sensation intact Psych/Mental Status: Mental status NL, Mood NL Labs/Xrays Labs Test 10/20/24 13:59 10/20/24 12:55 Range/Units Urine Color Colorless Yellow Urine Clarity Clear Clear Urine pH 6.0 5.0-9.0 Urine Specific [place] 1.004 1.001-1.035 Urine Protein Negative Negative Urine Ketones Negative Negative Urine Blood Negative Negative /uL Urine Nitrite Negative Negative Urine Bilirubin Negative Negative Urine Urobilinogen Normal Negative mg/dL Urine Leukocyte Esterase Negative Negative /uL Urine RBC 1 0 - 4 /hpf Urine Microscopic WBC 2 0-5 /HPF Urine Squamous Epithelial Cells Few <5 /hpf Urine Bacteria Many H None Seen /hpf Urine Glucose Normal Normal mg/dL White Blood Count 10.3 4.4-10.8 10^3/uL Red Blood Count 5.19 4.0-5.20 10^6/uL Hemoglobin 14.2 12.2-16.2 g/dL Hematocrit 42.5 36.0-46.0 % Mean Corpuscular Volume 81.9 80.0-100.0 fL Mean Corpuscular Hemoglobin 27.3 L 28.0-32.0 pg Mean Corpuscular Hemoglobin Concent 33.3 32.0-36.0 g/dL Red Cell Distribution Width 14.6 H 11.8-14.3 % Platelet Count 366 140-450 10^3/uL Mean Platelet Volume 6.8 L 6.9-10.8 fL Neutrophils (%) (Auto) 78.5 37.0-80.0 % Lymphocytes (%) (Auto) 15.1 10.0-50.0 % Monocytes (%) (Auto) 5.6 0.0-12.0 % Eosinophils (%) (Auto) 0.1 0.0-7.0 % Basophils (%) (Auto) 0.7 0.0-2.0 % Neutrophils # (Auto) 8.1 1.6-8.6 10 ^3/uL Lymphocytes # (Auto) 1.6 0.4-5.4 10 ^3/uL Monocytes # (Auto) 0.6 0-1.3 10 ^3/uL Eosinophils # (Auto) 0 0-0.8 10 ^3/uL Basophils # (Auto) 0.1 0-0.2 10 ^3/uL Nucleated Red Blood Cells 0.1 % Sodium Level 141 136-145 mmol/L Potassium Level 3.5 3.5-5.1 mmol/L Chloride Level 107 98-107 mmol/L Carbon Dioxide Level 24 20-31 mmol/L Anion Gap 10 5-15 Blood Urea Nitrogen 7 L 9-23 mg/dL Creatinine 0.93 0.550-1.02 mg/dL Glomerular Filtration Rate Calc 86 >90 mL/min BUN/Creatinine Ratio 7.5 L 10.0-20.0 Serum Glucose 90 74-106 mg/dL Calcium Level 9.9 8.7-10.4 mg/dL SEPSIS Sepsis Screen Date sepsis recognized/suspect: Oct 20, 2024 Time Sepsis recognized/suspect: 1244 Recent Procedure: No On Antibiotic Therapy: No Respiratory Rate >20: No Heart Rate >90: No Temp<36 C (96.8 F) or >38.3 C: No SBP <90 or MAP <65 mmHG: No New Acute Mental Status Change: No Is the patient on CPAP, BIPAP,: No Physician Orders Pulse Oximetry (10/20/24 12:21) Blood Pressure (10/20/24 12:21) Heplock Iv (10/20/24 12:21) Seizure Precautions (10/20/24 12:21) Analyst (10/20/24 12:21) Electrocardigram (10/20/24 12:21) Head Without Contrast (10/20/24 12:21) Admit (10/20/24 17:32) Allergies (10/20/24 17:32) Code Status (10/20/24 17:32) Sodium Chloride 0.9% (10/20/24 17:45) Ondansetron Hcl (Zofran) (10/20/24 17:45) Enoxaparin Sodium (Lovenox) (10/21/24 10:00) Fall Risk Precautions In Place QSHIFT (10/20/24 17:32) Complete Blood Count (10/21/24 04:00) Comprehensive Metabolic Panel (10/21/24 04:00) Npo (Nothing By Mouth) Diet (10/20/24 Dinner) Echo 2d Mode Cardiac Dop (10/20/24 17:32) Condition: Fair (10/20/24 17:32) Acetaminophen Tablet (Tylenol Tablet) (10/20/24 17:45) Nitroglycerin Sublingual (Ntrostat Subli (10/20/24 17:45) Morphine Sulfate Injection (10/20/24 17:45) Oxygen By Nasal Cannula (10/20/24 17:32) Stat Ekg For Chest Pain (10/20/24 17:32) Notify Md Of Changes From Base (10/20/24 17:32) Lathe Hand For 24 Hours (10/20/24 17:32) Emergency Dysrhythmia Protocol (10/20/24 17:32) Rhythm Strips Once Every Shift (10/20/24 17:32) Beta Hcg, Quantitative (10/20/24 17:34) Creatine Kinase (10/20/24 17:34) Lactic Acid W/ Reflex Order (10/20/24 17:34) Seizure Precautions In Place (10/20/24 17:34) Chest Portable (10/20/24 17:34) * Neurology Consult (10/20/24 17:34) Lamotrigine (Lamictal) (10/20/24 17:34) Drug Screen (10/20/24 17:37) Blood Alcohol (10/20/24 17:37) Levetiracetam 500 Mg/100ml (Levetiraceta (10/20/24 17:45) Vital Signs Date Time Temp Pulse Resp B/P (MAP) Pulse Ox O2 Delivery O2 Flow Rate FiO2 10/20/24 14:45 67 18 115/72 (86) 98 10/20/24 12:45 Room Air* 0 21 10/20/24 12:45 98.8 84 18 123/86 (98) 97 98.8 10/20/24 12:29 86 10/20/24 12:17 98.8 84 18 123/86 97 98.8 10/20/24 12:14 86 Laboratory Tests Test 10/20/24 12:55 White Blood Count 10.3 10^3/uL (4.4-10.8) Medications Medications Dose Ordered Sig/Emily Route Start Time Stop Time Status Last Admin Dose Admin Acetaminophen/ Hydrocodone Bitart 1 tab ONCE ONCE PO 10/20/24 13:45 10/20/24 13:46 DC 10/20/24 13:47 1 TAB Assessment/Plan Assessment/Plan Simple breakthrough seizure History of seizure disorder Confusion, reduced consciousness due to above Head CT revealed no acute changes Neurology consulted Toxicology screen ordered CXR ordered Lactic acid, creatinine kinase ordered Beta hCG ordered Monitoring on telemetry Echo ordered to rule out structural heart disease Pain management As needed Zofran Started on levetiracetam History of Jose Maria thyroiditis TSH ordered History of PCOS History of premature ovarian failure Takes combined oral contraceptive at home History of diverticulitis DIET: NPO DVT PROPHYLAXIS: Lovenox CODE STATUS: Goals of care discussed with patient at bedside for more than 35 minutes. Full code DISPOSITION: Med/surge Patient's status and plan discussed with the patient. Case discussed with Dr. Nielsen. Plan discussed with: Patient Date of Service: Oct 20, 2024 Billing Provider: MERLIN NIELSEN MD Common Visit Codes: [id number] INP/OBS CARE (HIGH) JASVIR ESTEBAN RESIDENT Oct 20, 2024 17:55 MERLIN NIELSEN MD Oct 24, 2024 20:31
[2024-10-20] MEDS: SODIUM CHLORIDE 0.9% 1,000 ML IV SCH (17:57)
[2024-10-20] MEDS: levETIRAcetam 500 mg/100ml 100 ML IV ONE (17:58)
[2024-10-20 19:07] LABS: Amphetamine Screen, Urine Neg (NEGATIVE); Barbiturate Scree,Urine Neg (NEGATIVE); Benzodiazephine Screen, Urine Neg (NEGATIVE); Cannabinoid Screen, Urine Neg (NEGATIVE); Cocaine Screen, Urine Neg (NEGATIVE); Opiate Scree,Urine Neg (NEGATIVE); Phencyclidine Screen, Urine Neg (NEGATIVE)
--- NOTE | 2024-10-20 19:21 | DVH ---
CHEST RADIOGRAPH Indication: rule out aspiration pneumonia Technique: Single frontal view of the chest was obtained Comparison: None FINDINGS: Lines and Tubes: None Lungs: No focal consolidation. Pleura: No effusion. No pneumothorax. Cardiomediastinal contours: Unremarkable Bones: No acute osseous abnormality. Stimulator with the generator overlying the left lateral chest w all. IMPRESSION: No acute cardiopulmonary disease.
[2024-10-20] MEDS: ACETAMINOPHEN 325 MG TAB PO PRN (20:50)
[2024-10-20] MEDS: ONDANSETRON HCL 4 MG/2 ML VIAL IV PRN (20:50)
[2024-10-20] MEDS: KETOROLAC TROMETH 30 MG/ML 1ML VIAL IV ONE (23:55)
[2024-10-21 06:15] LABS: Hematocrit 39.7 % (36.0-46.0); Hemoglobin 13.1 g/dL (12.2-16.2); Mean Corpuscular Hemoglobin 27.8 pg (28.0-32.0); Mean Corpuscular Volume 84.5 fL (80.0-100.0); Nucleated Red Blood Cells % 0.1 %
[2024-10-21 06:28] LABS: Alanine Aminotransferase 22 U/L (7-40); Albumin 4.8 g/dL (3.2-4.8); Alkaline Phosphatase 72 U/L (46-116); Anion Gap 10 (5-15); BUN/Creatinine Ratio 12.8 (10.0-20.0); Bilirubin, Total 0.4 mg/dL (0.2-1.0); Blood Urea Nitrogen 11 mg/dL (9-23); Calcium 9.0 mg/dL (8.7-10.4); Carbon Dioxide 23 mmol/L (20-31); Potassium 4.2 mmol/L (3.5-5.1); Sodium 142 mmol/L (136-145); Total Protein 7.0 g/dL (5.7-8.2)
[2024-10-21 06:29] LABS: Chloride 109 mmol/L (98-107); Glucose 71 mg/dL (74-106)
[2024-10-21 06:30] VITALS: PULSE 65; RESP 14; O2SAT 100
[2024-10-21] MEDS: KETOROLAC TROMETH 30 MG/ML 1ML VIAL IV ONE ×2 (06:58→16:28)
[2024-10-21 07:31] VITALS: PULSE 56; RESP 14; O2SAT 99
--- NOTE | 2024-10-21 09:21 | DVHINCON2 ---
Date of service: Oct 21, [address] Chamorro Reason for Consultation Breakthrough seizure History of Present Illness Ms. Elizabeth is a 29 years old left-handed female with a history of Jose Maria's disease, hypothyroidism, polycystic ovarian syndrome, seizure disorder, the patient was brought to the [facility] on 10/20/2024 for seizure activity, at this time, she is alert and fully oriented, she was her mother provided the following history I saw her on 04/08/2024 for seizure He has a history of seizure disorder, that will be further described. 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 She only have seizure attack 1-2 times monthly She has had convulsive seizure, but she does not remember when was last attack She had febrile seizure once in the age of eight months, she was treated with a seizure medication for a few years She has seen many doctors, currently she follows with Dr. Perez. She is on lamotrigine 300 mg b.i.d. She was on Keppra previously, the only medication she has used for seizure previously Urinalysis, 10/20/2024: Unremarkable Plasma alcohol, 10/20/24: 6 UDS, 10/20/24: Negative CBC, 10/21/2024: Unremarkable BMP, 10/20/2024: Unremarkable CMP, 10/21/2024: Unremarkable TSH, 10/20/2024: 48.7 Beta hCG, 10/20/24: 0.8 CT head, 04/07/2024: No acute intracranial abnormality CT head, 10/20/2024: No acute intracranial abnormality Past Medical History Jose Maria disease, hypothyroidism, polycystic ovarian syndrome. Past Surgical History Infection to the hand, vasovagal nerve stimulator Family History: Patient reports no known family medical history. Family History Diabetes, cancer Social History She is not a smoker, and she has no history of alcohol or substance abuse, she does not drive Allergies: Coded Allergies: Phenobarbital (Verified Allergy, Unknown, 04/07/24) Home Meds Active Scripts Lamotrigine (LAMICTAL) 100 Mg Tab, 400 MG PO Q12HR for 30 Days, #240 TAB 4 Refills Prov:ZAY WHITESIDE DO 04/09/24 Reported Medications Norgestimate-Ethinyl Estradiol (Tri-Sprintec 0.18/0.215/0.25 mg-35 Mcg) 1 Tab Tab, 1 TAB PO, TAB 04/08/24 Lamotrigine (Lamotrigine) 100 Mg Tab, 25 MG PO BID, TAB 04/08/24 Lamotrigine (Lamotrigine) 200 Mg Tab, 300 MG PO BID, TAB 04/08/24 Current Medications Current Medications Medications (Trade) Dose Ordered Sig/Emily Route PRN Reason Start Time Stop Time Status Last Admin Sodium Chloride 1,000 ml @ 120 mls/hr Q8H20M IV 10/20/24 17:45 10/20/24 17:57 Ondansetron HCl (Zofran) 4 mg Q4HP PRN IV NAUSEA / VOMITING 10/20/24 17:45 10/20/24 20:50 Enoxaparin Sodium (Lovenox) 40 mg DAILY SC 10/21/24 10:00 Acetaminophen (Tylenol Tablet) 650 mg Q6HP PRN PO PAIN SCALE 1-3 OR TEMP>100.4 10/20/24 17:45 10/20/24 20:50 Nitroglycerin (Ntrostat Sublingual) 0.4 mg Q5MINP PRN SL FOR CHEST PAIN 10/20/24 17:45 Morphine Sulfate 2 mg Q30M PRN IV FOR CHEST PAIN 10/20/24 17:45 Review of Systems As above, the other systems are negative, Vital Signs Vital Signs Date Time Temp Pulse Resp B/P (MAP) Pulse Ox O2 Delivery O2 Flow Rate FiO2 10/21/24 07:31 56 14 99 Room Air* 0 21 10/21/24 07:31 98.0 113/70 (84) 98.0 Physical Exam GENERAL EXAM: General: the patient is well developed and nourished. No acute distress. HEENT: Normocephalic, neck is supple, no carotid bruits. No mass. RESPIRATORY: Normal respiratory effort with symmetrical lung expansion. Lungs clear to auscultation. CARDIOVASCULAR: Regular rate and rhythm with no murmurs. S1, S2. ABDOMEN: Soft, nontender, normal bowel sound NEUROLOGICAL: MENTAL STATUS: Awake and alert. Oriented to person, place, time and general circumstances. Able to give personal history SPEECH, LANGUAGE, HIGHER CORTICAL FUNCTION: no aphasia or dysathria. CRANIAL NERVES: #2: Intact visual li to confrontation. The optic discs were sharp. #3,4,6: Pupils are equal, round and reactive. EOMs full and conjugate. No nystagmus. #5: Facial sensation intact in all three divisions bilaterally. Mandibular strength intact. #7: Facial muscles symmetrical and strength intact. #8: Hearing grossly normal to voice. #9,10: Uvula and soft palate rise in the midline. Swallow and voice are normal. #11: Trapezius and sternomastoid strength intact bilaterally. #12: Tongue midline. No fasciculations or atrophy. SENSATION: Sensation to touch and pinprick is normal. MOTOR: Normal tone in the upper and lower extremity. Normal muscle bulk. No fasciculations. No abnormal movements or posturing. Muscle strength of the major groups in the upper extremities is 5/5. Muscle strength of the major groups in the lower extremities is 5/5. REFLEXES: Deep tendon reflexes normal and symmetrical. No pathological reflexes. CEREBELLAR/COORDINATION: Finger to nose and heel to wood are normal bilaterally. GAIT/STATION: deferred Labs/Diagnostic Data Labs Test 10/21/24 05:00 10/20/24 17:54 10/20/24 13:59 10/20/24 12:55 Range/Units White Blood Count 9.2 4.4-10.8 10^3/uL Red Blood Count 4.70 4.0-5.20 10^6/uL Hemoglobin 13.1 12.2-16.2 g/dL Hematocrit 39.7 36.0-46.0 % Mean Corpuscular Volume 84.5 80.0-100.0 fL Mean Corpuscular Hemoglobin 27.8 L 28.0-32.0 pg Mean Corpuscular Hemoglobin Concent 33.0 32.0-36.0 g/dL Red Cell Distribution Width 14.9 H 11.8-14.3 % Platelet Count 316 140-450 10^3/uL Mean Platelet Volume 7.2 6.9-10.8 fL Neutrophils (%) (Auto) 57.7 37.0-80.0 % Lymphocytes (%) (Auto) 31.8 10.0-50.0 % Monocytes (%) (Auto) 9.5 0.0-12.0 % Eosinophils (%) (Auto) 0.4 0.0-7.0 % Basophils (%) (Auto) 0.6 0.0-2.0 % Neutrophils # (Auto) 5.3 1.6-8.6 10 ^3/uL Lymphocytes # (Auto) 2.9 0.4-5.4 10 ^3/uL Monocytes # (Auto) 0.9 0-1.3 10 ^3/uL Eosinophils # (Auto) 0 0-0.8 10 ^3/uL Basophils # (Auto) 0.1 0-0.2 10 ^3/uL Nucleated Red Blood Cells 0.1 % Sodium Level 142 136-145 mmol/L Potassium Level 4.2 3.5-5.1 mmol/L Chloride Level 109 H 98-107 mmol/L Carbon Dioxide Level 23 20-31 mmol/L Anion Gap 10 5-15 Blood Urea Nitrogen 11 9-23 mg/dL Creatinine 0.86 0.550-1.02 mg/dL Glomerular Filtration Rate Calc 95 >90 mL/min BUN/Creatinine Ratio 12.8 10.0-20.0 Serum Glucose 71 L 74-106 mg/dL Calcium Level 9.0 8.7-10.4 mg/dL Total Bilirubin 0.4 0.2-1.0 mg/dL Aspartate Amino Transferase (AST) 27 13-40 U/L Alanine Aminotransferase (ALT) 22 7-40 U/L Alkaline Phosphatase 72 46-116 U/L Total Protein 7.0 5.7-8.2 g/dL Albumin 4.8 3.2-4.8 g/dL Lactic Acid Level 1.2 0.4-2.0 mmol/L Urine Color Colorless Yellow Urine Clarity Clear Clear Urine pH 6.0 5.0-9.0 Urine Specific Dante 1.004 1.001-1.035 Urine Protein Negative Negative Urine Ketones Negative Negative Urine Blood Negative Negative /uL Urine Nitrite Negative Negative Urine Bilirubin Negative Negative Urine Urobilinogen Normal Negative mg/dL Urine Leukocyte Esterase Negative Negative /uL Urine RBC 1 0 - 4 /hpf Urine Microscopic WBC 2 0-5 /HPF Urine Squamous Epithelial Cells Few <5 /hpf Urine Bacteria Many H None Seen /hpf Urine Glucose Normal Normal mg/dL Urine Opiates Screen Neg NEGATIVE Urine Fentanyl Screen Neg NEGATIVE Urine Barbiturates Screen Neg NEGATIVE Urine Phencyclidine Screen Neg NEGATIVE Urine Amphetamines Screen Neg NEGATIVE Urine Benzodiazepines Screen Neg NEGATIVE Urine Cocaine Screen Neg NEGATIVE Urine Cannabinoids Screen Neg NEGATIVE Creatine Kinase 150 H 34-145 U/L Thyroid Stimulating Hormone (TSH) 48.70 H 0.55-4.78 uIU/mL Beta HCG, Quantitative 0.8 L 1.5-4.2 mIU/mL Plasma/Serum Blood Alcohol 6.0 <10 mg/dL Assessment Seizure disorder Partial complex seizure ? Grand mal seizure Status post vagal nerve stimulator insertion Plan/Recommendation Monitoring Supportive treatment Telemetry Lamotrigine 300 mg b.i.d. Ativan for seizure breakthrough Follow up with her doctors on discharge More recommendation per clinical course Prognosis: Poor This medical document was created using an electronic medical record system with [employer] dictation system. Although this document has been carefully reviewed, there may still be some phonetic and typographical errors. These areas are purely typographical due to imperfections of the software programs, and do not reflect any compromise in the patient's medical care. Plan discussed with: Patient, Other SANDY ARANGO MD Oct 21, 2024 09:20
[2024-10-21] MEDS: ENOXAPARIN SOD 40 MG/0.4 ML SYRINGE SC SCH (09:42)
[2024-10-21] MEDS: levETIRAcetam 1000 mg/100ml 100 ML IV SCH (11:43)
[2024-10-21] MEDS: ACETAMINOPHEN 325 MG TAB PO PRN (11:43)
[2024-10-21] MEDS: LEVOTHYROXINE SODIUM 100 MCG/5 ML INJ IV SCH (11:45)
[2024-10-21 11:54] LABS: Free T3 2.06 pg/mL (2.3-4.2)
[2024-10-21 11:55] LABS: Free T4 (Free Thyroxine) 0.66 ng/dL (0.89-1.76)
[2024-10-21] MEDS: ACETAMINOPHEN 325 MG TAB PO ONE (16:28)
--- NOTE | 2024-10-21 17:34 | DVHPNRES ---
Progress Note Date Seen: Oct 21, 2024 Resident Creating Document: JASVIR ESTEBAN RESIDENT Medical Necessity Reason Pt with a Central, PICC or Fol: No Subjective Review of Systems Glenn Sheppard is a 29-year-old female with past medical history of seizures, Jose Maria's, PCOS, diverticulitis, presented to the ER with chief complaints of 2 seizures at work. She reported feeling nauseous before the seizure episode. The seizures were witnessed by coworkers who called the EMS. She reports start co-worker saw her staring blankly, her eyes were watering, speaking gibberish and lips turn blue. She had 2 seizure episodes at work, during the 2nd episode 1 of the coworkers called EMS. The patient complains of minimal confusion. Complains of headache. Last night, she also reported 2 seizure episodes in the sleep, woke up feeling being choked, pain in tongue after tongue biting. She also complained of sore throat after she woke up. She reports seizure onset was in childhood. She is compliant on her seizure medications. The only other medication she takes is oral contraceptive pills, she follows regularly with the neurologist Dr. Palmer. No history of insomnia, stress, infection, sick contacts. ROS: Constitutional: Denies weight loss, fever and chills. HEENT: Denies changes in vision and hearing. Respiratory: Denies shortness of breath and cough Cardiovascular: Denies chest discomfort or palpitations GI: Denies abdominal pain, nausea, vomiting and diarrhea. : Denies dysuria and urinary frequency. Musculoskeletal: Denies myalgias and joint pain Skin: Denies rash and pruritus. Neurological: Seizure. complains of headache, dizziness Was examined at bedside today. Neurology on board. Complains of new seizure overnight, associated with urinary incontinence. She is complaining of headache, dizziness with lightheadedness. We will continue evaluating and managing. Objective vital signs Vital Sign Date Time Temp Pulse Resp B/P (MAP) Pulse Ox O2 Delivery O2 Flow Rate FiO2 10/21/24 16:00 97.8 62 14 117/70 (86) 95 97.8 10/21/24 12:48 Room Air* 0 21 Total Intake and Output 10/20/24 10/20/24 10/21/24 15:00 23:00 07:00 Intake Total 100 ml Balance 100 ml medications Current Medications Medications Dose Ordered Sig/Emily Route Start Time Stop Time Status Last Admin Dose Admin Sodium Chloride 1,000 ml @ 120 mls/hr Q8H20M IV 10/20/24 17:45 10/21/24 09:42 120 MLS/HR Ondansetron HCl 4 mg Q4HP PRN IV 10/20/24 17:45 10/20/24 20:50 4 MG Enoxaparin Sodium 40 mg DAILY SC 10/21/24 10:00 10/21/24 09:42 40 MG Levetiracetam 100 ml @ 400 mls/hr DAILY IV 10/21/24 10:00 10/21/24 11:43 400 MLS/HR Acetaminophen 650 mg Q4HP PRN PO 10/21/24 09:30 10/21/24 11:43 650 MG Levothyroxine Sodium 100 mcg DAILY IV 10/21/24 10:00 10/21/24 11:45 100 MCG Examination General: Patient alert and oriented in person, place and time. Patient following commands. HEENT: Dry mucous membranes Respiratory/pulmonary: Clear lungs bilaterally, vesicular murmurs present in almost all lung li, no associated crackles or wheezes. Cardiovascular: Normal heart sounds S1 and S2 with no associated murmurs Abdomen: Abdomen nondistended, there is no pain to palpation in any of the abdominal quadrants, no palpable masses. Extremities: There is no peripheral edema present at the lower extremities. Peripheral Pulses: 3+ Radial (R). 3+ Radial (L). 3+ Dorsalis pedis (R). 3+ Dorsalis pedis(L) Skin: No rashes or pruritus, there is no sacral edema present at this time. Neurological: Intact cranial nerves with no focal neurologic deficits laboratory and microbiology Laboratory Tests 10/21/24 05:00 Test 10/21/24 05:00 Range/Units Serum Glucose 71 L 74-106 mg/dL Problem List/Assessment/Plan Problem List/Assessment/Plan Simple breakthrough seizure History of seizure disorder Partial complex seizure ? Grand mal seizure Status post vagal nerve stimulator insertion Head CT revealed no acute changes Toxicology screen negative for drug abuse CXR ordered Lactic acid, creatinine kinase ordered Beta hCG ordered Monitoring on telemetry Echo ordered to rule out structural heart disease Pain management As needed Zofran Increased levetiracetam dose Neurology advised supportive treatment, lamotrigine 300 mg b.i.d., Ativan for seizure breakthrough. History of Jose Maria thyroiditis Hypothyroidism TSH 48. Labs show reduced T3, T4 History of PCOS History of premature ovarian failure Takes combined oral contraceptive at home History of diverticulitis DIET: NPO DVT PROPHYLAXIS: Lovenox CODE STATUS: Goals of care discussed with patient at bedside for more than 25 minutes. Full code DISPOSITION: Med/surge Patient's status and plan discussed with the patient. Case discussed with Dr. Nielsen. Plan discussed with: Patient Date of Service: Oct 21, 2024 Billing Provider: MERLIN NIELSEN MD Common Visit Codes: [id number] INP/OBS CARE(HIGH) JASVIR ESTEBAN RESIDENT Oct 21, 2024 17:34 MERLIN NIELSEN MD Oct 24, 2024 20:43
[2024-10-21] MEDS ORDERED: LORazepam 2MG/ML-1ML VIAL IV PRN (17:45)
--- NOTE | 2024-10-21 19:25 | DVHDSRES ---
Discharge Summary Date of Admission Resident Creating Document: JASVIR ESTEBAN RESIDENT Oct 20, 2024 at 17:32 Labs/Diagnostic Data: Laboratory Results Test 10/21/24 05:00 10/20/24 17:54 10/20/24 13:59 10/20/24 12:55 White Blood Count 9.2 10^3/uL (4.4-10.8) Red Blood Count 4.70 10^6/uL (4.0-5.20) Hemoglobin 13.1 g/dL (12.2-16.2) Hematocrit 39.7 % (36.0-46.0) Mean Corpuscular Volume 84.5 fL (80.0-100.0) Mean Corpuscular Hemoglobin 27.8 pg (28.0-32.0) Mean Corpuscular Hemoglobin Concent 33.0 g/dL (32.0-36.0) Red Cell Distribution Width 14.9 % (11.8-14.3) Platelet Count 316 10^3/uL (140-450) Mean Platelet Volume 7.2 fL (6.9-10.8) Neutrophils (%) (Auto) 57.7 % (37.0-80.0) Lymphocytes (%) (Auto) 31.8 % (10.0-50.0) Monocytes (%) (Auto) 9.5 % (0.0-12.0) Eosinophils (%) (Auto) 0.4 % (0.0-7.0) Basophils (%) (Auto) 0.6 % (0.0-2.0) Neutrophils # (Auto) 5.3 10 ^3/uL (1.6-8.6) Lymphocytes # (Auto) 2.9 10 ^3/uL (0.4-5.4) Monocytes # (Auto) 0.9 10 ^3/uL (0-1.3) Eosinophils # (Auto) 0 10 ^3/uL (0-0.8) Basophils # (Auto) 0.1 10 ^3/uL (0-0.2) Nucleated Red Blood Cells 0.1 % Sodium Level 142 mmol/L (136-145) Potassium Level 4.2 mmol/L (3.5-5.1) Chloride Level 109 mmol/L (98-107) Carbon Dioxide Level 23 mmol/L (20-31) Anion Gap 10 (5-15) Blood Urea Nitrogen 11 mg/dL (9-23) Creatinine 0.86 mg/dL (0.550-1.02) Glomerular Filtration Rate Calc 95 mL/min (>90) BUN/Creatinine Ratio 12.8 (10.0-20.0) Serum Glucose 71 mg/dL (74-106) Calcium Level 9.0 mg/dL (8.7-10.4) Total Bilirubin 0.4 mg/dL (0.2-1.0) Aspartate Amino Transferase (AST) 27 U/L (13-40) Alanine Aminotransferase (ALT) 22 U/L (7-40) Alkaline Phosphatase 72 U/L (46-116) Creatine Kinase 103 U/L (34-145) Total Protein 7.0 g/dL (5.7-8.2) Albumin 4.8 g/dL (3.2-4.8) Free Thyroxine (T4) Calculated 0.66 ng/dL (0.89-1.76) Free Triiodothyronine (T3) pg/mL 2.06 pg/mL (2.3-4.2) Lactic Acid Level 1.2 mmol/L (0.4-2.0) Urine Color Colorless (Yellow) Urine Clarity Clear (Clear) Urine pH 6.0 (5.0-9.0) Urine Specific Strong 1.004 (1.001-1.035) Urine Protein Negative (Negative) Urine Ketones Negative (Negative) Urine Blood Negative /uL (Negative) Urine Nitrite Negative (Negative) Urine Bilirubin Negative (Negative) Urine Urobilinogen Normal mg/dL (Negative) Urine Leukocyte Esterase Negative /uL (Negative) Urine RBC 1 /hpf (0 - 4) Urine Microscopic WBC 2 /HPF (0-5) Urine Squamous Epithelial Cells Few /hpf (<5) Urine Bacteria Many /hpf (None Seen) Urine Glucose Normal mg/dL (Normal) Urine Opiates Screen Neg (NEGATIVE) Urine Fentanyl Screen Neg (NEGATIVE) Urine Barbiturates Screen Neg (NEGATIVE) Urine Phencyclidine Screen Neg (NEGATIVE) Urine Amphetamines Screen Neg (NEGATIVE) Urine Benzodiazepines Screen Neg (NEGATIVE) Urine Cocaine Screen Neg (NEGATIVE) Urine Cannabinoids Screen Neg (NEGATIVE) Thyroid Stimulating Hormone (TSH) 48.70 uIU/mL (0.55-4.78) Beta HCG, Quantitative 0.8 mIU/mL (1.5-4.2) Plasma/Serum Blood Alcohol 6.0 mg/dL (<10) Other Laboratory Tests 10/21/24 05:00 Brief Hx & Hospital Course: Brief history: Glenn Sheppard is a 29-year-old female with past medical history of seizures, Jose Maria's, PCOS, diverticulitis, presented to the ER with chief complaints of 2 seizures at work. She reported feeling nauseous before the seizure episode. The seizures were witnessed by coworkers who called the EMS. She reports start co-worker saw her staring blankly, her eyes were watering, speaking gibberish and lips turn blue. She had 2 seizure episodes at work, during the 2nd episode 1 of the coworkers called EMS. The patient complains of minimal confusion. Complains of headache. She also reported 2 seizure episodes in the sleep, the night before admission, she reported waking up feeling being choked, pain in tongue after tongue biting. She also complained of sore throat after she woke up. She reports seizure onset was in childhood. She is compliant on her seizure medications. The only other medication she takes is oral contraceptive pills, she follows regularly with the neurologist Dr. Palmer. No history of insomnia, stress, infection, sick contacts. She complained of headache, dizziness, confusion. Hospital course: She was admitted along the lines of simple breakthrough seizure. A CT head revealed no acute changes. Managed with levetiracetam, Zofran, IV fluids, pain management. She was started on telemetry. Echo was done to rule out structural heart disease. Her labs revealed TSH 48, managed with IV levothyroxine. She is stable for discharge today and we will follow closely with Neurology. Discharge diagnosis: Simple breakthrough seizure History of seizure disorder Partial complex seizure Grand mal seizure, ruled out Status post vagal nerve stimulator insertion History of Jose Maria thyroiditis Hypothyroidism History of PCOS History of diverticulitis Discharge plan: Please follow-up with PCP in 1 week. Follow-up with neurology outpatient lamotrigine 300 mg b.i.d. Discharge Instruct/Medications Scheduled Lamotrigine (Lamotrigine), 300 MG PO BID, (Reported) Lamotrigine (Lamotrigine), 25 MG PO BID, (Reported) Lamotrigine (Lamictal), 400 MG PO Q12HR Lamotrigine (Lamictal), 300 MG PO Q12HR Miscellaneous Medications Norgestimate-Ethinyl Estradiol (Tri-Sprintec 0.18/0.215/0.25 mg-35 Mcg), 1 TAB PO, (Reported) Discharge Statement: "Patient was advised to return to the ER or call 911 if any headaches, dizziness, shortness of breath, chest pain, abdominal pain, bleeding, fevers, or worsening of medical condition. Patient was counseled about treatment plan, medications, possible side effects, patientverbalized understanding. All questions were answered to the best of my ability. This discharge took greater then 30 minutes in planning, reviewing documentation, counseling the patient, and discussing with other team members." ASSESSMENT ASSESSMENT Assessment JASVIR ESTEBAN RESIDENT Oct 21, 2024 19:25
[2024-10-21 20:00] VITALS: PULSE 61; RESP 18; O2SAT 98
[2024-10-21 21:00] VITALS: BP 113/84; PULSE 61; RESP 18; TEMP 97.5; O2SAT 98
[2024-10-21] MEDS: lamoTRIgine 100 MG TAB PO SCH (22:00)
--- NOTE | 2024-10-21 23:08 | DVHSR ---
APPROVED REPORT EXAM: Two-dimensional and M-mode echocardiogram with Doppler and color Doppler. Blood Pressure: 113/70 mmHg INDICATION Rule out Structural Heart Disease RISK FACTORS Obesity: Height: 5' 7", Weight: 190 DIMENSIONS LVDd4.6 (3.8-5.7cm)LA (2D)3.8 (1.9-4.0cm)Aortic Root3.1 (2.0-3.7cm) LVDs2.9 (2.5-4.0cm)LA (MM) (1.9-4.0cm)Aortic Cusp Exc1.8 (1.5-2.0cm) EF (%) 68.0 (55-70%)Rt. Atrium4.0 (1.9-4.0cm)Asc. Aorta cm IVSd0.8 (0.7-1.1cm)RV (D) (1.8-2.4cm) PWd0.9 (0.7-1.1cm) Mitral Valve MitralMitral Stenosis E wave0.90m/sMV Mean GR.mmHg A wave0.40m/sMV Peak GR.mmHg E/A ratio2.32D MVAcm2 Aortic Valve Aortic ValveAortic Stenosis V10.80m/Jimmie Mean GR.4mmHg V21.30m/Jimmie Peak GR.7mmHg LVOT Diameter2.4 (1.8-2.4cm)Doppler AVA2.78cm2 Pulmonic Valve V20.60m/s Other Information Quality : Rhythm : Bradycardia Conclusion LV EF IS 65% NORMAL VALVES NORMAL RV FUNCTION NO EFFUSION
[2024-10-22] VITALS (7 sets, daily range): BP systolic 99–137; BP diastolic 68–96; PULSE 64–79; RESP 16–18; TEMP 98–98.4; O2SAT 97–100
[2024-10-22] MEDS ORDERED: LAM100T PO (12:03)
--- NOTE | 2024-10-22 12:39 | DVHDSRES ---
Discharge Summary Date of Admission Resident Creating Document: JASVIR ESTEBAN RESIDENT Oct 20, 2024 at 17:32 Date of Discharge: Oct 22, 2024 Admitting Diagnosis No large wounds Labs/Diagnostic Data: Laboratory Results Test 10/21/24 05:00 10/20/24 17:54 10/20/24 13:59 10/20/24 12:55 White Blood Count 9.2 10^3/uL (4.4-10.8) Red Blood Count 4.70 10^6/uL (4.0-5.20) Hemoglobin 13.1 g/dL (12.2-16.2) Hematocrit 39.7 % (36.0-46.0) Mean Corpuscular Volume 84.5 fL (80.0-100.0) Mean Corpuscular Hemoglobin 27.8 pg (28.0-32.0) Mean Corpuscular Hemoglobin Concent 33.0 g/dL (32.0-36.0) Red Cell Distribution Width 14.9 % (11.8-14.3) Platelet Count 316 10^3/uL (140-450) Mean Platelet Volume 7.2 fL (6.9-10.8) Neutrophils (%) (Auto) 57.7 % (37.0-80.0) Lymphocytes (%) (Auto) 31.8 % (10.0-50.0) Monocytes (%) (Auto) 9.5 % (0.0-12.0) Eosinophils (%) (Auto) 0.4 % (0.0-7.0) Basophils (%) (Auto) 0.6 % (0.0-2.0) Neutrophils # (Auto) 5.3 10 ^3/uL (1.6-8.6) Lymphocytes # (Auto) 2.9 10 ^3/uL (0.4-5.4) Monocytes # (Auto) 0.9 10 ^3/uL (0-1.3) Eosinophils # (Auto) 0 10 ^3/uL (0-0.8) Basophils # (Auto) 0.1 10 ^3/uL (0-0.2) Nucleated Red Blood Cells 0.1 % Sodium Level 142 mmol/L (136-145) Potassium Level 4.2 mmol/L (3.5-5.1) Chloride Level 109 mmol/L (98-107) Carbon Dioxide Level 23 mmol/L (20-31) Anion Gap 10 (5-15) Blood Urea Nitrogen 11 mg/dL (9-23) Creatinine 0.86 mg/dL (0.550-1.02) Glomerular Filtration Rate Calc 95 mL/min (>90) BUN/Creatinine Ratio 12.8 (10.0-20.0) Serum Glucose 71 mg/dL (74-106) Calcium Level 9.0 mg/dL (8.7-10.4) Total Bilirubin 0.4 mg/dL (0.2-1.0) Aspartate Amino Transferase (AST) 27 U/L (13-40) Alanine Aminotransferase (ALT) 22 U/L (7-40) Alkaline Phosphatase 72 U/L (46-116) Creatine Kinase 103 U/L (34-145) Total Protein 7.0 g/dL (5.7-8.2) Albumin 4.8 g/dL (3.2-4.8) Free Thyroxine (T4) Calculated 0.66 ng/dL (0.89-1.76) Free Triiodothyronine (T3) pg/mL 2.06 pg/mL (2.3-4.2) Lactic Acid Level 1.2 mmol/L (0.4-2.0) Urine Color Colorless (Yellow) Urine Clarity Clear (Clear) Urine pH 6.0 (5.0-9.0) Urine Specific [place] 1.004 (1.001-1.035) Urine Protein Negative (Negative) Urine Ketones Negative (Negative) Urine Blood Negative /uL (Negative) Urine Nitrite Negative (Negative) Urine Bilirubin Negative (Negative) Urine Urobilinogen Normal mg/dL (Negative) Urine Leukocyte Esterase Negative /uL (Negative) Urine RBC 1 /hpf (0 - 4) Urine Microscopic WBC 2 /HPF (0-5) Urine Squamous Epithelial Cells Few /hpf (<5) Urine Bacteria Many /hpf (None Seen) Urine Glucose Normal mg/dL (Normal) Urine Opiates Screen Neg (NEGATIVE) Urine Fentanyl Screen Neg (NEGATIVE) Urine Barbiturates Screen Neg (NEGATIVE) Urine Phencyclidine Screen Neg (NEGATIVE) Urine Amphetamines Screen Neg (NEGATIVE) Urine Benzodiazepines Screen Neg (NEGATIVE) Urine Cocaine Screen Neg (NEGATIVE) Urine Cannabinoids Screen Neg (NEGATIVE) Thyroid Stimulating Hormone (TSH) 48.70 uIU/mL (0.55-4.78) Beta HCG, Quantitative 0.8 mIU/mL (1.5-4.2) Plasma/Serum Blood Alcohol 6.0 mg/dL (<10) Other Laboratory Tests 10/21/24 05:00 Brief Hx & Hospital Course: Brief history: Glenn Sheppard is a 29-year-old female with past medical history of seizures, Jose Maria's, PCOS, diverticulitis, presented to the ER with chief complaints of 2 seizures at work. She reported feeling nauseous before the seizure episode. The seizures were witnessed by coworkers who called the EMS. She reports start co-worker saw her staring blankly, her eyes were watering, speaking gibberish and lips turn blue. She had 2 seizure episodes at work, during the 2nd episode 1 of the coworkers called EMS. The patient complains of minimal confusion. Complains of headache. She also reported 2 seizure episodes in the sleep, the night before admission, she reported waking up feeling being choked, pain in tongue after tongue biting. She also complained of sore throat after she woke up. She reports seizure onset was in childhood. She is compliant on her seizure medications. The only other medication she takes is oral contraceptive pills, she follows regularly with the neurologist Dr. Palmer. No history of insomnia, stress, infection, sick contacts. She complained of headache, dizziness, confusion. Hospital course: She was admitted along the lines of simple breakthrough seizure. A CT head revealed no acute changes. Managed with levetiracetam, Zofran, IV fluids, pain management. She was started on telemetry. Echo was done to rule out structural heart disease. Her labs revealed TSH 48, managed with IV levothyroxine. She is stable for discharge today and we will follow closely with Neurology. Discharge diagnosis: Simple breakthrough seizure Medication non adherence possible History of seizure disorder Partial complex seizure Grand mal seizure, ruled out Status post vagal nerve stimulator insertion History of Jose Maria thyroiditis Hypothyroidism History of PCOS History of diverticulitis Discharge plan: Please follow-up with PCP in 1 week. Follow-up with neurology outpatient Please continue lamotrigine 300 mg b.i.d. Please take levothyroxine daily before breakfast. Please continue oral contraceptive pills as prescribed by PCP Instructions for seizure disorder care: Enjoy your normal activities. Most people with epilepsy lead normal lives. Don't do hazardous activities, such as mountain climbing or scuba diving. A seizure under these conditions could lead to a fatal accident. Many other activities can be very dangerous if you were to have a seizure. If you are on a ladder or roof or operating heavy equipment or sharp tools, you could be seriously injured. Talk with your healthcare provider about any activities you are unsure of. Don't swim alone or take part in other similar activities without others nearby. Ask your healthcare provider about any restrictions on driving or other activities. Check with your state department of public safety to learn whether there are any driving limits based on your condition. Each state has different laws on driving after seizures. Other home care Other considerations: Take your medicine exactly as directed. Skipping doses can affect the way your body handles the medicine, which could cause you to have a seizure. Ask your healthcare provider what to do if you miss a dose of your medicine. Dont drink alcohol or use any medicine without talking with your provider first. Make sure all of your healthcare providers have a list of all your medicines. Seizure medicines may interact with other medicines. Carry an updated list of your medicines in your wallet or on your electronic device. Consider asking your partner or a close friend or family member to also have this information in case of an emergency. Keep an emergency supply of medicine in a "go bag" by your door in case of an emergency evacuation or natural disaster. When you travel, always bring an extra 3 to 5 days of medicine in case your plans unexpectedly change. Ask your healthcare provider what to do if you take control pills. They may not work as well when taking seizure medicines. Talk to your healthcare provider if you are thinking about becoming . Think about how to keep small children safe if you are caring for them when you have a seizure. Plan ahead for what you and your family should do during a seizure and when to call 911. Create your own written plan so others know what to do if you have a seizure and how to prevent emergencies. Wear a medical alert pendant or bracelet that alerts others to your condition. The ID should include any medicine allergies. Join a local support group. Ask your provider for names and phone numbers. The Epile[employer] Foundation https://www.epilepsy.com/ offers both online support and information on local resources. Talk with your healthcare provider if you are trying to become . Some medicines for treating epilepsy and seizures can cause defects when taken during . Folic acid may reduce the risk for some of these defects. Ask your provider if you should take folic acid or take other precautions. When to call your healthcare provider You or your family members or friends should call your provider right away if you have: Seizures that are getting longer and worse Seizures that are different from those youve had in the past Questions about missed medicines or medicine interactions Seizures strong enough to cause injury Medicine side effects Skin rash Fever of 100.4F (38C) or higher, or as directed by your healthcare provider Symptoms get worse or you have new symptoms Operations or Procedures CT head FINDINGS: The ventricles and subarachnoid spaces are normal in size and configuration. There is no midline shift or mass effect. The posey white matter interfaces are maintained. The basal cisterns are patent. There is no evidence of acute intracranial hemorrhage or extra-axial fluid collection. The mastoid air cells and visualized paranasal sinuses are well-aerated. IMPRESSION: No acute intracranial abnormality. 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 and take it as advised New Medications: Lamotrigine (Lamictal) 100 Mg Tab 300 MG PO Q12HR for 30 Days, #180 TAB please take lamotrigine the new dose as prescribed and follow up with your neurologist for further dose adjustment Continued Medications: Lamotrigine (Lamotrigine) 200 Mg Tab 300 MG PO BID, TAB Norgestimate-Ethinyl Estradiol (Tri-Sprintec 0.18/0.215/0.25 mg-35 Mcg) 1 Tab Tab 1 TAB PO, TAB Discontinued Medications: Lamotrigine (Lamotrigine) 100 Mg Tab 25 MG PO BID, TAB Lamotrigine (Lamictal) 100 Mg Tab 400 MG PO Q12HR for 30 Days, #240 TAB 4 Refills Care Plan: Please follow-up with PCP in 1 week. Follow-up with neurology outpatient Please continue lamotrigine 300 mg b.i.d. Please take levothyroxine daily before breakfast. Please continue oral contraceptive pills as prescribed by PCP Scheduled Lamotrigine (Lamotrigine), 300 MG PO BID, (Reported) Lamotrigine (Lamictal), 300 MG PO Q12HR Levothyroxine Sodium (Levo-T), 137 MCG PO DAILY@[email or web address] Scheduled PRN Esomeprazole Magnesium Trihydr (Nexium), 40 MG PO DAILYP PRN Miscellaneous Medications Norgestimate-Ethinyl Estradiol (Tri-Sprintec 0.18/0.215/0.25 mg-35 Mcg), 1 TAB PO, (Reported) Discontinued Medications Lamotrigine (Lamotrigine), 25 MG PO BID, (Reported) Lamotrigine (Lamictal), 400 MG PO Q12HR Discharge Statement: "Patient was advised to return to the ER or call 911 if any headaches, dizziness, shortness of breath, chest pain, abdominal pain, bleeding, fevers, or worsening of medical condition. Patient was counseled about treatment plan, medications, possible side effects, patientverbalized understanding. All questions were answered to the best of my ability. This discharge took greater then 30 minutes in planning, reviewing documentation, counseling the patient, and discussing with other team members." ASSESSMENT ASSESSMENT Assessment Breakthrough seizure medication non adherence likely Date of Service: Oct 22, 2024 Billing Provider: MERLIN BONILLA MD Common Visit Codes: 16509-QKY/OBS DISCH DAY >30min JASVIR ESTEBAN RESIDENT Oct 22, 2024 12:39 MERLIN BONILLA MD Oct 24, 2024 21:01
--- NOTE | 2024-10-22 14:56 | ECG ---
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
[2024-10-22] MEDS ORDERED: [UNRECOGNIZED DRUG - CODE] PO (17:54)
[2024-10-22] MEDS ORDERED: ESOM40CA39 PO (20:12)
== END 2024-10-22 21:08 | disposition home or self-care (01) | DRG 53 ==
LOC: ER 12:11 → OVERFLOW 17:32 → MERGE 17:32 → WEST WING 10-21 17:52
PROVIDERS: ADMIT Student in an Organized Health Care Education/Training Program; ATTEND Psychiatry & Neurology Neurology
DX: G40.209 Localization-related (focal) (partial) symptomatic epilepsy and epileptic syndromes with complex partial seizures, not intractable, without status epilepticus (principal); E06.3 Autoimmune thyroiditis; E28.2 Polycystic ovarian syndrome; Z83.3 Family history of diabetes mellitus; Z91.148 Patient's other noncompliance with medication regimen for other reason; Z88.8 Allergy status to other drugs, medicaments and biological substances
CPT/HCPCS: 36415; 70450; 71045; 80048; 80053; 80307; 80320; 81001; 82542; 82550; 83605; 84439; 84443; 84481; 84702; 85025; 93005; 93306; 96365; 99291; G0378; J1885; J2405; J3490